=== PATIENT | female | born 1965 | race Caucasian/White ===

== ENCOUNTER 2016-08-30 21:05 | Emergency (ER) | payer MEDICAID, OTHER ==
[~2016-08-30] VITALS: Ht 160 cm; Wt 100.5 kg
[~2016-08-30 21:05] MED LIST: ATIVAN; FERR28TA2 PO; PRILOSEC; VALS160T43 PO
[2016-08-30 21:47] VITALS: BP 124/78
[2016-08-31] MEDS ORDERED: BACITRACIN-POLYMYXIN B TOPICAL OINT UD TOP ONE (01:14)
== END 2016-08-31 01:27 | disposition home or self-care (01) ==
LOC: ER 21:21
DX: S61.411A Laceration without foreign body of right hand, initial encounter (principal); Z88.0 Allergy status to penicillin; Z88.1 Allergy status to other antibiotic agents; W54.0XXA Bitten by dog, initial encounter; Y93.89 Activity, other specified; Y92.89 Other specified places as the place of occurrence of the external cause; Y99.8 Other external cause status
CPT/HCPCS: 12002

== ENCOUNTER 2022-09-03 14:34 | Inpatient (IN) | payer MEDICAID ==
[~2022-09-03] VITALS: Ht 160 cm; Wt 122.1 kg
[2022-09-03] MEDS ORDERED: AZITHROMYCIN 500MG/ 250ML 250 ML IV ONE (15:00)
[2022-09-03] MEDS ORDERED: methylPREDNISolone SOD SUCC 125 MG/2 ML VL IV ONE (15:00)
[2022-09-03 15:38] LABS: Basophils # (auto) 0 10 ^3/uL (0-0.2); Basophils % (auto) 0.8 % (0.0-2.0); Eosinophils # (auto) 0 10 ^3/uL (0-0.8); Eosinophils % (auto) 0.7 % (0.0-7.0); Hematocrit 47.3 % (36.0-46.0); Hemoglobin 15.4 g/dL (12.2-16.2); Lymphocytes # (auto) 1.2 10 ^3/uL (0.4-5.4); Lymphocytes % (auto) 19.1 % (10.0-50.0); Mean Corpuscular Hemoglobin 30.2 pg (28.0-32.0); Mean Corpuscular Hgb Conc. 32.5 g/dL (32.0-36.0); Mean Corpuscular Volume 92.9 fL (80.0-100.0); Monocytes # (auto) 0.7 10 ^3/uL (0-1.3); Monocytes % (auto) 10.7 % (0.0-12.0); Neutrophils # (auto) 4.2 10 ^3/uL (1.6-8.6); Neutrophils % (auto) 68.7 % (37.0-80.0); Nucleated Red Blood Cells % 0.1 %; Red Blood Cells 5.09 10^6/uL (4.0-5.20); Red Cell Distribution Width 13.5 % (11.8-14.3); White Blood Cell 6.1 10^3/uL (4.4-10.8)
[2022-09-03] MEDS ORDERED: REMDESIVIR PER PHARMACY 0 ML IV SCH (15:45)
[2022-09-03 16:15] LABS: Albumin 3.3 g/dL (3.4-5.0); Calcium 8.5 mg/dL (8.5-10.1)
[2022-09-03 16:17] LABS: Bilirubin, Total 0.4 mg/dL (0.2-1.0); Lactic Acid w/Reflex 2.4 mmol/L (0.4-2.0); Total Protein 7.5 g/dL (6.4-8.2)
[2022-09-03] MEDS ORDERED: IOHEXOL 350 MG/ML 100ML IJ ONE (16:40)
[2022-09-03] MEDS ORDERED: InsuLIN REG 1unit/0.01ml Soln (100units/ml) IV ONE (16:45)
[2022-09-03] MEDS ORDERED: DEXTROSE (50%) 50ML SYRG IV PRN ×2 (18:00→23:00)
[2022-09-03] MEDS ORDERED: REMDESIVIR 200 MG in NS 210ml LOADING DOSE ADULT IV ONE (18:00)
[2022-09-03] MEDS ORDERED: IPRATROPIUM BROM 0.5 MG/2.5ML INH SOL NEB SCH (18:00)
[2022-09-03] MEDS ORDERED: ALBUTEROL SULF 2.5 MG/0.5ML(0.5%) NEB SOLN NEB PRN (18:00)
[2022-09-03] MEDS ORDERED: ACETAMINOPHEN 325 MG TAB PO PRN (18:00)
[2022-09-03] MEDS ORDERED: MORPHINE SULFATE INJ 2 MG/ml SYRG IV PRN (18:00)
[2022-09-03] MEDS ORDERED: ALBUTEROL SULF 2.5 MG/0.5ML(0.5%) NEB SOLN NEB SCH (18:00)
[2022-09-03] MEDS ORDERED: NITROGLYCERIN 0.4 MG SL TAB SL PRN (18:00)
[2022-09-03 18:29] VITALS: BP 97/58
[2022-09-03] MEDS: SODIUM CHLORIDE 0.9% 1,000 ML IV SCH (18:43)
[2022-09-03 18:44] LABS: Cholesterol 145 mg/dL (< 200); Triglycerides 126 mg/dL (< 150)
[2022-09-03 18:47] LABS: HDL Cholesterol 33 mg/dL (40-59); LDL Cholesterol 100 mg/dL (< 100)
[2022-09-03] MEDS: ENOXAPARIN SOD 40 MG/0.4 ML SYRINGE SC SCH (20:10)
[2022-09-03] MEDS ORDERED: InsuLIN REG 1unit/0.01ml Soln (100units/ml) SC SCH (22:00)
[2022-09-03] MEDS ORDERED: ACCU-CHEK COMFORT CURVE STRIP VI SCH (22:00)
[2022-09-03] MEDS: ALBUTEROL SULF HFA 90MCG INH 200DOSE IN SCH (22:21)
[2022-09-03] MEDS: InsuLIN REG 1unit/0.01ml Soln (100units/ml) SC SCH (23:00)
[2022-09-04] MEDS: InsuLIN REG 1unit/0.01ml Soln (100units/ml) SC SCH ×5 (02:23→20:24)
[2022-09-04] MEDS: ACCU-CHEK COMFORT CURVE STRIP VI SCH ×6 (04:00→20:27)
[2022-09-04 05:38] LABS: Basophils # (auto) 0 10 ^3/uL (0-0.2); Basophils % (auto) 0.1 % (0.0-2.0); Eosinophils # (auto) 0 10 ^3/uL (0-0.8); Hematocrit 43.9 % (36.0-46.0); Hemoglobin 14.5 g/dL (12.2-16.2); Lymphocytes # (auto) 0.7 10 ^3/uL (0.4-5.4); Lymphocytes % (auto) 9.6 % (10.0-50.0); Mean Corpuscular Hemoglobin 30.7 pg (28.0-32.0); Mean Corpuscular Volume 93.2 fL (80.0-100.0); Monocytes # (auto) 0.1 10 ^3/uL (0-1.3); Monocytes % (auto) 1.8 % (0.0-12.0); Neutrophils # (auto) 6.1 10 ^3/uL (1.6-8.6); Neutrophils % (auto) 88.5 % (37.0-80.0); Nucleated Red Blood Cells % 0.1 %; Red Blood Cells 4.71 10^6/uL (4.0-5.20); Red Cell Distribution Width 13.7 % (11.8-14.3)
[2022-09-04 05:55] LABS: Potassium 4.2 mmol/L (3.5-5.1)
[2022-09-04] MEDS: ALBUTEROL SULF HFA 90MCG INH 200DOSE IN SCH ×3 (05:56→23:21)
[2022-09-04 05:59] LABS: BUN/Creatinine Ratio 17.7 (10.0-20.0); Bilirubin, Total 0.5 mg/dL (0.2-1.0); Total Protein 7.7 g/dL (6.4-8.2)
[2022-09-04] MEDS ORDERED: DEXTROSE (50%) 50ML SYRG IV PRN (06:30)
[2022-09-04] MEDS ORDERED: InsuLIN REG 1unit/0.01ml Soln (100units/ml) SC SCH ×3 (07:00→22:00)
[2022-09-04] MEDS ORDERED: ACCU-CHEK COMFORT CURVE STRIP VI SCH (07:00)
[2022-09-04] MEDS ORDERED: SIMV-13 PO (09:10)
[2022-09-04] MEDS ORDERED: LOSA-39 PO (09:10)
[2022-09-04] MEDS ORDERED: OMEP20TA PO (09:10)
[2022-09-04] MEDS: AZITHROMYCIN 500MG/ 250ML 250 ML IV SCH (09:43)
[2022-09-04] MEDS: ENOXAPARIN SOD 40 MG/0.4 ML SYRINGE SC SCH (09:44)
[2022-09-04] MEDS ORDERED: DexAMETHasone SOD PHOS 10MG/1ML VIAL INJ IV ONE (10:30)
[2022-09-04] MEDS: SODIUM CHLORIDE 0.9% 1,000 ML IV SCH (10:40)
[2022-09-04] MEDS ORDERED: cefTRIAXone 1GM/50ML D5W 50 ML IV ONE (11:30)
[2022-09-04] MEDS: INSULIN LANTUS (GLARGINE) 1 /0.01ml (100units/ml) SC SCH (11:55)
[2022-09-04 12:31] LABS: Urine Bacteria NONE SEEN /hpf (None Seen); Urine Blood Negative /uL (Negative); Urine Specific Gravity 1.034 (1.001-1.035); Urine WBC 2 /hpf (0 - 5)
[2022-09-04] MEDS ORDERED: CLINDAMYCIN 300MG IV 50 ML IV ONE (13:00)
[2022-09-04] MEDS: CLINDAMYCIN 900MG IV 50 ML IV SCH ×2 (14:21→22:17)
[2022-09-04] MEDS ORDERED: ACETAMINOPHEN 325 MG TAB PO PRN (16:30)
[2022-09-04] MEDS: REMDESIVIR 100mg 100 MG in SODIUM CHL 0.9% 230 ML IV SCH (18:35)
[2022-09-04] MEDS ORDERED: MORPHINE SULFATE INJ 2 MG/ml SYRG IV PRN (21:00)
[2022-09-04] MEDS ORDERED: NITROGLYCERIN 0.4 MG SL TAB SL PRN (21:00)
[2022-09-05] MEDS: ACCU-CHEK COMFORT CURVE STRIP VI SCH ×6 (00:15→20:34)
[2022-09-05] MEDS: InsuLIN REG 1unit/0.01ml Soln (100units/ml) SC SCH ×6 (00:16→20:33)
[2022-09-05 04:33] VITALS: BP 95/62
[2022-09-05] MEDS: CLINDAMYCIN 900MG IV 50 ML IV SCH ×3 (05:07→22:13)
[2022-09-05 05:30] LABS: Albumin 2.8 g/dL (3.4-5.0); Calcium 8.6 mg/dL (8.5-10.1); Potassium 3.7 mmol/L (3.5-5.1)
[2022-09-05 05:34] LABS: BUN/Creatinine Ratio 35.9 (10.0-20.0); Basophils # (auto) 0 10 ^3/uL (0-0.2); Basophils % (auto) 0.1 % (0.0-2.0); Bilirubin, Total 0.2 mg/dL (0.2-1.0); Eosinophils # (auto) 0 10 ^3/uL (0-0.8); Hematocrit 40.5 % (36.0-46.0); Hemoglobin 13.5 g/dL (12.2-16.2); Lymphocytes # (auto) 0.9 10 ^3/uL (0.4-5.4); Lymphocytes % (auto) 7.6 % (10.0-50.0); Mean Corpuscular Hemoglobin 30.2 pg (28.0-32.0); Mean Corpuscular Hgb Conc. 33.3 g/dL (32.0-36.0); Mean Corpuscular Volume 90.9 fL (80.0-100.0); Monocytes # (auto) 0.7 10 ^3/uL (0-1.3); Monocytes % (auto) 5.7 % (0.0-12.0); Neutrophils # (auto) 10.5 10 ^3/uL (1.6-8.6); Neutrophils % (auto) 86.6 % (37.0-80.0); Nucleated Red Blood Cells % 0.2 %; Red Blood Cells 4.45 10^6/uL (4.0-5.20); Red Cell Distribution Width 13.3 % (11.8-14.3); Total Protein 7.2 g/dL (6.4-8.2); White Blood Cell 12.1 10^3/uL (4.4-10.8)
[2022-09-05] MEDS: INSULIN LANTUS (GLARGINE) 1 /0.01ml (100units/ml) SC SCH ×2 (06:50→08:18)
[2022-09-05] MEDS: ALBUTEROL SULF HFA 90MCG INH 200DOSE IN SCH ×3 (06:55→21:44)
[2022-09-05 09:00] VITALS: BP_SYST 103; BP_SYST 110; BP_DIAS 58; BP_DIAS 64
[2022-09-05] MEDS ORDERED: cefTRIAXone 1GM/50ML D5W 50 ML IV SCH (09:00)
[2022-09-05] MEDS: AZITHROMYCIN 500MG/ 250ML 250 ML IV SCH (09:25)
[2022-09-05] MEDS: ENOXAPARIN SOD 40 MG/0.4 ML SYRINGE SC SCH (09:26)
[2022-09-05] MEDS: DexAMETHasone SOD PHOS 10MG/1ML VIAL INJ IV SCH (09:26)
[2022-09-05 13:00] VITALS: BP 121/75
[2022-09-05] MEDS: REMDESIVIR 100mg 100 MG in SODIUM CHL 0.9% 230 ML IV SCH (16:15)
[2022-09-05 20:00] VITALS: BP 115/66
[2022-09-05 22:00] VITALS: BP 115/66
[2022-09-06] MEDS: ACCU-CHEK COMFORT CURVE STRIP VI SCH ×7 (00:27→23:57)
[2022-09-06] MEDS: InsuLIN REG 1unit/0.01ml Soln (100units/ml) SC SCH ×7 (00:29→23:08)
[2022-09-06 05:00] VITALS: BP 131/66
[2022-09-06] MEDS: CLINDAMYCIN 900MG IV 50 ML IV SCH ×3 (05:31→21:20)
[2022-09-06 06:24] LABS: Basophils # (auto) 0 10 ^3/uL (0-0.2); Basophils % (auto) 0.1 % (0.0-2.0); Eosinophils # (auto) 0 10 ^3/uL (0-0.8); Hematocrit 37.2 % (36.0-46.0); Hemoglobin 12.5 g/dL (12.2-16.2); Lymphocytes # (auto) 1.4 10 ^3/uL (0.4-5.4); Lymphocytes % (auto) 13.6 % (10.0-50.0); Mean Corpuscular Hemoglobin 30.9 pg (28.0-32.0); Mean Corpuscular Hgb Conc. 33.7 g/dL (32.0-36.0); Mean Corpuscular Volume 91.7 fL (80.0-100.0); Monocytes % (auto) 9.6 % (0.0-12.0); Neutrophils # (auto) 7.9 10 ^3/uL (1.6-8.6); Neutrophils % (auto) 76.7 % (37.0-80.0); Nucleated Red Blood Cells % 0.1 %; Red Blood Cells 4.05 10^6/uL (4.0-5.20); Red Cell Distribution Width 13.6 % (11.8-14.3); White Blood Cell 10.3 10^3/uL (4.4-10.8)
[2022-09-06] MEDS: ALBUTEROL SULF HFA 90MCG INH 200DOSE IN SCH ×3 (06:42→22:00)
[2022-09-06 07:06] LABS: Albumin 2.7 g/dL (3.4-5.0); Calcium 8.3 mg/dL (8.5-10.1); Potassium 4.1 mmol/L (3.5-5.1)
[2022-09-06 07:10] LABS: BUN/Creatinine Ratio 48.9 (10.0-20.0); Bilirubin, Total 0.2 mg/dL (0.2-1.0)
[2022-09-06] MEDS ORDERED: INSULIN LANTUS (GLARGINE) 1 /0.01ml (100units/ml) SC ONE (08:21)
[2022-09-06] MEDS: DexAMETHasone SOD PHOS 10MG/1ML VIAL INJ IV SCH (08:40)
[2022-09-06] MEDS: ENOXAPARIN SOD 40 MG/0.4 ML SYRINGE SC SCH (08:40)
[2022-09-06] MEDS: AZITHROMYCIN 500MG/ 250ML 250 ML IV SCH (08:40)
[2022-09-06 09:00] VITALS: BP 105/64
[2022-09-06 13:00] VITALS: BP 108/70
[2022-09-06 17:00] VITALS: BP 103/53
[2022-09-06] MEDS: REMDESIVIR 100mg 100 MG in SODIUM CHL 0.9% 230 ML IV SCH (17:12)
[2022-09-06 22:00] VITALS: BP 120/60
[2022-09-07 01:34] VITALS: BP 120/60
[2022-09-07] MEDS: ACCU-CHEK COMFORT CURVE STRIP VI SCH ×5 (04:23→22:24)
[2022-09-07 05:00] VITALS: BP 103/62
[2022-09-07] MEDS: InsuLIN REG 1unit/0.01ml Soln (100units/ml) SC SCH ×5 (05:30→22:47)
[2022-09-07] MEDS: CLINDAMYCIN 900MG IV 50 ML IV SCH ×3 (05:55→22:28)
[2022-09-07] MEDS: INSULIN LANTUS (GLARGINE) 1 /0.01ml (100units/ml) SC SCH (06:23)
[2022-09-07 07:36] LABS: Basophils # (auto) 0 10 ^3/uL (0-0.2); Basophils % (auto) 0.1 % (0.0-2.0); Eosinophils # (auto) 0 10 ^3/uL (0-0.8); Eosinophils % (auto) 0.1 % (0.0-7.0); Hematocrit 39.6 % (36.0-46.0); Lymphocytes # (auto) 1.6 10 ^3/uL (0.4-5.4); Lymphocytes % (auto) 23.8 % (10.0-50.0); Mean Corpuscular Hemoglobin 30.1 pg (28.0-32.0); Mean Corpuscular Hgb Conc. 32.9 g/dL (32.0-36.0); Mean Corpuscular Volume 91.7 fL (80.0-100.0); Monocytes # (auto) 0.6 10 ^3/uL (0-1.3); Monocytes % (auto) 8.9 % (0.0-12.0); Neutrophils # (auto) 4.5 10 ^3/uL (1.6-8.6); Neutrophils % (auto) 67.1 % (37.0-80.0); Red Blood Cells 4.32 10^6/uL (4.0-5.20); Red Cell Distribution Width 13.6 % (11.8-14.3); White Blood Cell 6.7 10^3/uL (4.4-10.8)
[2022-09-07] MEDS: ALBUTEROL SULF HFA 90MCG INH 200DOSE IN SCH ×3 (07:40→19:00)
[2022-09-07 08:00] LABS: Albumin 2.6 g/dL (3.4-5.0); Calcium 8.1 mg/dL (8.5-10.1); Potassium 3.6 mmol/L (3.5-5.1)
[2022-09-07 08:05] LABS: BUN/Creatinine Ratio 42.3 (10.0-20.0); Bilirubin, Total 0.2 mg/dL (0.2-1.0); Total Protein 6.6 g/dL (6.4-8.2)
[2022-09-07] MEDS: AZITHROMYCIN 500MG/ 250ML 250 ML IV SCH (08:59)
[2022-09-07] MEDS: DexAMETHasone SOD PHOS 10MG/1ML VIAL INJ IV SCH (08:59)
[2022-09-07 09:00] VITALS: BP 114/60
[2022-09-07] MEDS: ENOXAPARIN SOD 40 MG/0.4 ML SYRINGE SC SCH (09:00)
[2022-09-07] MEDS ORDERED: PANTOPRAZOLE 40 MG TAB PO ONE (11:45)
[2022-09-07 13:00] VITALS: BP 115/75
[2022-09-07] MEDS: REMDESIVIR 100mg 100 MG in SODIUM CHL 0.9% 230 ML IV SCH (16:25)
[2022-09-07 17:00] VITALS: BP 107/62
[2022-09-07 22:47] VITALS: BP 121/69
[2022-09-08 04:41] VITALS: BP 115/69
[2022-09-08] MEDS: ACCU-CHEK COMFORT CURVE STRIP VI SCH ×4 (06:21→22:30)
[2022-09-08] MEDS: InsuLIN REG 1unit/0.01ml Soln (100units/ml) SC SCH ×4 (06:30→22:31)
[2022-09-08] MEDS: CLINDAMYCIN 900MG IV 50 ML IV SCH ×3 (06:31→23:24)
[2022-09-08] MEDS: INSULIN LANTUS (GLARGINE) 1 /0.01ml (100units/ml) SC SCH (06:33)
[2022-09-08] MEDS: ALBUTEROL SULF HFA 90MCG INH 200DOSE IN SCH ×3 (06:48→22:20)
[2022-09-08 09:00] VITALS: BP 113/59
[2022-09-08] MEDS: AZITHROMYCIN 500MG/ 250ML 250 ML IV SCH (11:15)
[2022-09-08] MEDS: PANTOPRAZOLE 40 MG TAB PO SCH (11:16)
[2022-09-08] MEDS: DexAMETHasone SOD PHOS 10MG/1ML VIAL INJ IV SCH (11:16)
[2022-09-08] MEDS: ENOXAPARIN SOD 40 MG/0.4 ML SYRINGE SC SCH (11:17)
[2022-09-08 13:00] VITALS: BP 117/72
[2022-09-08 17:00] VITALS: BP 98/59
[2022-09-08 20:00] VITALS: BP 103/58
[2022-09-08 21:43] VITALS: BP 103/58
[2022-09-09 04:40] VITALS: BP 132/78
[2022-09-09] MEDS: ACCU-CHEK COMFORT CURVE STRIP VI SCH ×3 (06:48→17:00)
[2022-09-09] MEDS: CLINDAMYCIN 900MG IV 50 ML IV SCH (06:52)
[2022-09-09] MEDS: INSULIN LANTUS (GLARGINE) 1 /0.01ml (100units/ml) SC SCH (06:57)
[2022-09-09] MEDS: InsuLIN REG 1unit/0.01ml Soln (100units/ml) SC SCH ×3 (06:58→17:00)
[2022-09-09] MEDS: ALBUTEROL SULF HFA 90MCG INH 200DOSE IN SCH ×2 (06:59→14:32)
[2022-09-09 08:33] VITALS: BP 118/56
[2022-09-09] MEDS: PANTOPRAZOLE 40 MG TAB PO SCH (09:39)
[2022-09-09] MEDS: ENOXAPARIN SOD 40 MG/0.4 ML SYRINGE SC SCH (09:43)
[2022-09-09] MEDS ORDERED: METF-370 PO (10:53)
[2022-09-09] MEDS ORDERED: BLOO1KIT60 XX (10:53)
[2022-09-09] MEDS ORDERED: DEXA6TAB PO (10:56)
[2022-09-09] MEDS ORDERED: AZITTAB PO (10:56)
[2022-09-09] MEDS ORDERED: ZINC220C10 PO (10:56)
[2022-09-09] MEDS ORDERED: ASCO500T11 PO (10:56)
[2022-09-09] MEDS ORDERED: CHOL1CAP47 PO (10:56)
[2022-09-09] MEDS: AZITHROMYCIN 500MG/ 250ML 250 ML IV SCH (11:47)
[2022-09-09] MEDS: DexAMETHasone SOD PHOS 10MG/1ML VIAL INJ IV SCH (11:48)
[2022-09-09 12:50] VITALS: BP 120/79
[2022-09-09 16:23] VITALS: BP 123/70
[2022-09-09 17:04] VITALS: BP 120/79
== END 2022-09-09 17:15 | disposition home or self-care (01) | DRG 137 ==
LOC: ER 14:34 → EDBD 14:34 → TELE 18:00 → TELE-EAST 09-04 21:46
PROVIDERS: ADMIT Nurse Practitioner Family; ATTEND Internal Medicine Geriatric Medicine
PROC: XW033E5 Introduction of Remdesivir Anti-infective into Peripheral Vein, Percutaneous Approach, New Technology Group 5 (ICD-10-PCS; principal; 2022-09-04)
DX: U07.1 COVID-19 (principal); J96.01 Acute respiratory failure with hypoxia; J12.82 Pneumonia due to coronavirus disease 2019; E44.0 Moderate protein-calorie malnutrition; E66.01 Morbid (severe) obesity due to excess calories; E11.65 Type 2 diabetes mellitus with hyperglycemia; E78.00 Pure hypercholesterolemia, unspecified; I10 Essential (primary) hypertension; R19.7 Diarrhea, unspecified; Z79.899 Other long term (current) drug therapy; Z90.710 Acquired absence of both cervix and uterus; Z80.9 Family history of malignant neoplasm, unspecified; Z83.3 Family history of diabetes mellitus; Z88.0 Allergy status to penicillin; Z88.1 Allergy status to other antibiotic agents; Z68.42 Body mass index [BMI] 45.0-49.9, adult; Z79.84 Long term (current) use of oral hypoglycemic drugs
CPT/HCPCS: 36415; 71045; 71275; 80053; 80061; 81001; 82962; 83036; 83605; 83735; 83880; 84443; 84484; 85025; 85379; 87040; 87426; 87804; 93005; 94640; 96361; 96365; 96366; G0378; J1100; J1815; J3490

== ENCOUNTER → 2022-09-13 | Outpatient (CLI) | payer MEDICAID ==
[~2022-09-13] MED LIST changes: +ASCO500T11 PO; +AZITTAB PO; +BLOO1KIT60 XX; +CHOL1CAP47 PO; +DEXA6TAB PO; +LOSA-39 PO; +METF-370 PO; +OMEP20TA PO; +SIMV-13 PO; +ZINC220C10 PO
== END | disposition home or self-care (01) ==
LOC: RT 09:32
PROVIDERS: ATTEND Internal Medicine
DX: J18.9 Pneumonia, unspecified organism (principal); U09.9 Post COVID-19 condition, unspecified
CPT/HCPCS: 36600; 82805

== ENCOUNTER → 2023-01-30 | Outpatient (CLI) | payer MEDICAID ==
[~2023-01-30] MED LIST changes: -FERR28TA2 PO; +FERR28TA4 PO; -LOSA-39 PO; +LOSA100T58 PO; -SIMV-13 PO; +SIMV40TA18 PO; -VALS160T43 PO; +VALS160T6 PO
== END | disposition home or self-care (01) ==
LOC: RT 10:25
PROVIDERS: ATTEND Internal Medicine Pulmonary Disease
DX: J44.9 Chronic obstructive pulmonary disease, unspecified (principal)
CPT/HCPCS: 94060

== ENCOUNTER 2024-05-22 16:47 | Inpatient (IN) | payer MEDICAID ==
[~2024-05-22] VITALS: Ht 160 cm; Wt 70.5 kg
[~2024-05-22 16:47] MED LIST changes: +LOSA-535 PO; -LOSA100T58 PO
[2024-05-22] MEDS: DexAMETHasone SOD PHOS 10MG/1ML VIAL INJ IV ONE (17:11)
[2024-05-22] MEDS: ACETAMINOPHEN 325 MG TAB PO ONE (17:11)
[2024-05-22 17:15] VITALS: PULSE 107; RESP 20; O2SAT 93
[2024-05-22] MEDS: IPRATROPIUM BROM 0.5 MG/2.5ML INH SOL NEB ONE (17:22)
[2024-05-22] MEDS: ALBUTEROL SULF 2.5 MG/0.5ML(0.5%) NEB SOLN NEB ONE (17:22)
--- NOTE | 2024-05-22 17:51 | ED.PDOC ---
History of Present Illness HPI Comments 58-year-old female brought in by EMS presents with a chief complaint of flu-like symptoms with associated fever, cough, and SOB. Patient reports that she has been feeling flu-like symptoms for the past few days. Patient was sating at 84% on room air and was placed on 3L/NC by EMS and is now sating at 93%. Patient was also febrile upon arrival at 102.7F. Patient denies taking any Tylenol or Ibuprofen for the fever. No other symptoms or modifying factors present at this time. Chief Complaint: Flu like Time Seen by MD: 17:48 Primary Care Provider: AMADAIES Reviewed Notes: Nurses Notes, Loan Funder Notes, Medications, Allergies Allergies: Coded Allergies: Penicillins (Verified Allergy, Unknown, 09/03/22) Tetracycline (Verified Allergy, Unknown, 09/03/22) Home Meds Active Scripts Zinc Sulfate (Zinc) 220 Mg Cap, 220 MG PO Q24H, #30 CAP Prov:JENNIFER CERVANTES MD 09/09/22 Cholecalciferol (Vitamin D3 Super Strength) 2,000 Unit Cap, 2000 UNIT PO Q24H, #30 CAP Prov:JENNIFER CERVANTES MD 09/09/22 Ascorbic Acid (VITAMIN C TABLET) 500 Mg Tb, 1 TAB PO BID, #60 TAB Prov:JENNIFER CERVANTES MD 09/09/22 Dexamethasone (Dexamethasone) 6 Mg Tab, 6 MG PO Q24H, #5 TAB Prov:JENNIFER CERVANTES MD 09/09/22 Azithromycin (Zithromax Z-Mark) 250 Mg Tab, 250 MG PO Q24H, #6 TAB Prov:JENNIFER CERVANTES MD 09/09/22 Blood Glucose Monitoring Suppl (D-Care Glucometer Kit/Glu W/Device) 1 Kit Kit, KIT XX, #1 Prov:JENNIFER CERVANTES MD 09/09/22 Metformin Hydrochloride (Metformin Hcl) 500 Mg Tab, 1 TAB PO BID, #60 TAB 3 Refills Prov:JENNIFER CERVANTES MD 09/09/22 Reported Medications Simvastatin (Simvastatin) 40 Mg Tab, 40 MG PO DAILY for 30 Days 09/04/22 Omeprazole (Gnp Omeprazole) 20 Mg Tab, 20 MG PO, TAB 09/04/22 Losartan Potassium (Losartan Potassium) 100 Mg Tab, 100 MG PO, TAB 09/04/22 [Prilosec] No Conflict Check 9/16/11 [Ativan] No Conflict Check 01/11/11 Ferrous Sulfate (Iron) 28 Mg Tab, PO DAILY 01/10/11 Valsartan-Hydrochlorothiazide (Diovan Hct) 160 Mg/25 Mg Tab, PO DAILY 01/10/11 Information Source: Patient, Emergency Med Personnel Mode of Arrival: EMS Severity: Moderate Timing: Days Duration: Since onset Prehospital treatment: Oxygen Past Medical History PAST MEDICAL HISTORY: High Lipids, HTN Surgical History: BTL, , Hysterectomy Family History Family History: Family hx of DM, Family hx of Cancer Social History Smoker: Non-Smoker, Quit Greater Than 1 Year Alcohol: Denies ETOH Use Drugs: Denies Drug Use Lives In: Home Constitutional: reports: fatigue, fever, weakness; denies: chills, diaphoresis, malaise, sweats, others EENTM: denies: blurred vision, double vision, ear bleeding, ear discharge, ear drainage, ear pain, ear ringing, eye pain, eye redness, hearing loss, mouth pain, mouth swelling, nasal discharge, nose bleeding, nose congestion, nose pain, photophobia, tearing, throat pain, throat swelling, voice changes, others Respiratory: reports: cough, shortness of breath; denies: hemoptysis, orthopnea, SOB at rest, SOB with excertion, stridor, wheezing, others Cardiovascular: denies: chest pain, dizzy spells, diaphoresis, Dyspnea on exertion, edema, irregular heart beat, left arm pain, lightheadedness, palpitations, PND, syncope, others Gastrointestinal: denies: abdomen distended, abdominal pain, blood streaked bowels, constipated, diarrhea, dysphagia, difficulty swallowing, hematemesis, melena, nausea, poor appetite, poor fluid intake, rectal bleeding, rectal pain, vomiting, others Genitourinary: denies: abnormal vagina bleeding, burning, dyspareunia, dysuria, flank pain, frequency, hematuria, incontinence, pain, , vagina discharge, urgency, others Neurological: denies: dizziness, fainting, headache, left sided numbness, left sided weakness, numbness, paresthesia, pre-existing deficit, right sided numbness, right sided weakness, seizure, speech problems, tingling, tremors, weakness, others Musculoskeletal: denies: back pain, gout, joint pain, joint swelling, muscle pain, muscle stiffness, neck pain, others Integumetry: denies: bruises, change in color, change in hair/nails, dryness, laceration, lesions, lumps, rash, wounds, others Allergic/Immunocompromised: denies: Difficulty Healing, Frequent Infections, Hives, Itching, others Hematologic/Lymphatic: denies: anemia, blood clots, easy bleeding, easy bruising, swollen glands, others Endocrine: denies: excessive hunger, excessive sweating, excessive thirst, excessive urination, flushing, intolerance to cold, intolerance to heat, unexplained weight gain, unexplained weight loss, others Psychiatric: denies: anxiety, bipolar disorder, depression, hopeless, panic disorder, schizophrenia, sleepless, suicidal, others All Other Systems: Reviewed and Negative Physical Exam Exam Comments Patient presents as a moderately ill 58-year-old female. General Appearance: Moderate Distress (Distress due to sickness and shortness of breath concerns.), Obese HEENT: Normal ENT Inspection, Pharynx Normal, TMs Normal Neck: Full Range of Motion, Non-Tender, Normal, Normal Inspection Respiratory: Chest Non-Tender, Lungs Clear, No Accessory Muscle Use, No Respiratory Distress, Normal Breath Sounds, Other (Unremarkable auscultation of bilateral lung ruano.) Cardiovascular: No Edema, No JVD, No Murmur, No Gallop, Normal Peripheral Pulses, Regular Rate/Rhythm Breast Exam: Deferred Gastrointestinal: No Organomegaly, Non Tender, No Pulsatile Mass, Normal Bowel Sounds, Soft Genitalia: Deferred Pelvic: Deferred Rectal: Deferred Extremities: No calf tenderness, Normal capillary refill, Normal inspection, Normal range of motion, Non-tender, No pedal edema Musculoskeletal : Apperance: Normal Neurologic: Alert, No Motor Deficits, Normal Affect, Normal Mood, No Sensory Deficits Cerebellar Function: Normal Reflexes: Normal Skin: Dry, Normal Color, Warm Lymphatic: No Adenopathy Was a procedure done? Was a procedure done?: No Differential Dx Considerations may include: Influenza a/B, COVID-19, viral upper respiratory illness, pneumonia, acute respiratory distress X-Ray, Labs, Meds, VS Vital Signs Date Time Temp Pulse Resp B/P (MAP) Pulse Ox O2 Delivery O2 Flow Rate FiO2 05/22/24 21:24 100.3 05/22/24 20:00 106 05/22/24 19:40 99.2 106 12 117/91 (100) 93 99.2 05/22/24 19:40 106 12 93 Nasal Cannula* 2 28 05/22/24 18:23 99.5 100 20 124/72 (89) 90 99.5 05/22/24 17:22 22 92 Nasal Cannula* 3 32 05/22/24 17:15 107 20 93 Nasal Cannula* 2 28 05/22/24 17:13 102.7 107 20 106/71 (83) 93 102.7 05/22/24 16:50 Nasal Cannula* 3 32 05/22/24 16:50 102.7 107 21 106/71 (83) 88 Lab Test 05/22/24 21:05 05/22/24 20:34 05/22/24 19:08 05/22/24 17:34 Range/Units Troponin I High Sensitivity 3 L < 3 L < 3 L </=34 ng/L Influenza Type A Antigen Positive Negative Influenza Type B Antigen Negative Negative SARS-CoV-2 Antigen (Rapid) Negative NEGATIVE White Blood Count 5.5 4.4-10.8 10^3/uL Red Blood Count 4.88 4.0-5.20 10^6/uL Hemoglobin 15.0 12.2-16.2 g/dL Hematocrit 45.3 36.0-46.0 % Mean Corpuscular Volume 92.8 80.0-100.0 fL Mean Corpuscular Hemoglobin 30.7 28.0-32.0 pg Mean Corpuscular Hemoglobin Concent 33.0 32.0-36.0 g/dL Red Cell Distribution Width 14.5 H 11.8-14.3 % Platelet Count 188 140-450 10^3/uL Mean Platelet Volume 8.9 6.9-10.8 fL Neutrophils (%) (Auto) 37.0-80.0 % Lymphocytes (%) (Auto) 10.0-50.0 % Monocytes (%) (Auto) 0.0-12.0 % Basophils (%) (Auto) 0.0-2.0 % Neutrophils # (Auto) 1.6-8.6 10 ^3/uL Lymphocytes # (Auto) 0.4-5.4 10 ^3/uL Monocytes # (Auto) 0-1.3 10 ^3/uL Differential Total Cells Counted 100.0 100 Neutrophils % (Manual) 66 37.0-80.0 Band Neutrophils % (Manual) 0 Lymphocytes % (Manual) 25 10.0-50.0 Monocytes % (Manual) 9 0-12 Eosinophils % (Manual) 0 0-7 Basophils % (Manual) 0 0.0-2.0 Metamyelocytes % (manual) 0 Myelocytes % (Manual) 0 Promyelocytes % (Manual) 0 Blast Cells % (Manual) 0 Nucleated Red Blood Cells 1.0 % Reactive Lymphocytes 0 Smudge Cells 1 /100 WBC Platelet Estimate Adequate D-Dimer, Quantitative 0.34 0.0-0.49 mg/L FEU Sodium Level 139 136-145 mmol/L Potassium Level 3.8 3.5-5.1 mmol/L Chloride Level 101 98-107 mmol/L Carbon Dioxide Level 26 20-31 mmol/L Anion Gap 12 5-15 Blood Urea Nitrogen 13 9-23 mg/dL Creatinine 0.91 0.550-1.02 mg/dL Glomerular Filtration Rate Calc 72 >90 mL/min BUN/Creatinine Ratio 14.3 10.0-20.0 Serum Glucose 119 H 74-106 mg/dL Calcium Level 9.7 8.7-10.4 mg/dL B-Type Natriuretic Peptide 29.86 0-100 pg/mL Lipase 25 12-53 U/L Current Medications Medications (Trade) Dose Ordered Sig/Taras Route Start Time Stop Time Status Last Admin Acetaminophen (Tylenol Tablet) 1,000 mg ONCE ONCE PO 05/22/24 17:00 05/22/24 17:01 DC 05/22/24 17:11 Albuterol (Ventolin Medneb) 5 mg ONCE ONCE NEB 05/22/24 17:00 05/22/24 17:01 DC 05/22/24 17:22 Ipratropium [place] (Atrovent Medneb) 0.5 mg ONCE ONCE NEB 05/22/24 17:00 05/22/24 17:01 DC 05/22/24 17:22 Ibuprofen (Motrin Tablet) 600 mg ONCE ONCE PO 05/22/24 21:30 05/22/24 21:31 DC 05/22/24 21:24 X-Ray, Labs, Meds, VS Comment All studies performed the ED were evaluated by me personally. Chest x-ray was unremarkable for any consolidation or other radiographic abnormality. Serum laboratories were unremarkable for any systemic process, but the patient is positive for influenza A. Patient maintained a 4 L oxygen necessity while in the ED. We attempted multiple times to remove the oxygen, but the patient would desaturate into the mid 80s. Patient will be admitted for acute respiratory distress and influenza a concerns. Time of 1ST Reevaluation: 22:05 Reevaluation 1ST: Improved Consultation: PCP Patient Education/Counseling: Diagnosis, Treatment, Prognosis Family Education/Counseling: Diagnosis, Treatment, Prognosis Departure 1 Departure Time of Disposition: 22:06 Impression: Primary Impression: Acute respiratory distress Additional Impression: Influenza A Disposition: ADMITTED INPATIENT Condition: Fair Discharged With: Self Critical Care Note Critical Care Time?: No Stability Stability form required: No Heart Score Heart Score: Heart Score Response (Comments) Value History N/A 0 EKG N/A 0 Age N/A 0 Risk Factors N/A 0 Troponin N/A 0 Total 0 I personally scribed for HANS MCKEON PAC ([email or web address]) on 05/22/24 at 17:51. Electronically submitted by Henrry Salgado ([email or web address]). HANS MCKEON PAC May 22, 2024 17:51
[2024-05-22 17:52] LABS: Hematocrit 45.3 % (36.0-46.0); Mean Corpuscular Hemoglobin 30.7 pg (28.0-32.0); Mean Corpuscular Volume 92.8 fL (80.0-100.0); Platelet Count (auto) 188 10^3/uL (140-450); Red Blood Cells 4.88 10^6/uL (4.0-5.20); Red Cell Distribution Width 14.5 % (11.8-14.3); White Blood Cell 5.5 10^3/uL (4.4-10.8)
[2024-05-22 18:04] LABS: Chloride 101 mmol/L (98-107); Potassium 3.8 mmol/L (3.5-5.1); Sodium 139 mmol/L (136-145)
[2024-05-22 18:05] LABS: Anion Gap 12 (5-15); Calcium 9.7 mg/dL (8.7-10.4); Carbon Dioxide 26 mmol/L (20-31)
[2024-05-22 18:10] LABS: BUN/Creatinine Ratio 14.3 (10.0-20.0); Blood Urea Nitrogen 13 mg/dL (9-23)
[2024-05-22 18:26] LABS: Glucose 119 mg/dL (74-106)
[2024-05-22 18:34] LABS: Band Neutrophils % (manual) 0; Basophils % (manual) 0 (0.0-2.0); Blast Cells 0; Eosinophils % (manual) 0 (0-7); Metamyelocytes % 0; Myelocytes % 0; Promyelocytes % 0; Reactive Lymphocytes 0
[2024-05-22 18:35] LABS: Lipase 25 U/L (12-53)
--- NOTE | 2024-05-22 18:50 | DVH ---
CLINICAL INFORMATION: 58 years old, Female; Shortness of breath. TECHNIQUE: Single AP portable chest radiograph was obtained. COMPARISON: XY CHEST PORTABLE on DOS: 09/03/22 FINDINGS: Lungs: Mild atelectasis in the lung bases. No focal consolidation. No pneumothorax or pleural effusio n. Cardiac: Heart size is within normal limits. Pulmonary vasculature: Unremarkable. Mediastinum/saviat: Unremarkable. Bones: No acute osseous abnormality identified. Other: No other significant findings. IMPRESSION: Mild bibasilar atelectasis. No focal consolidation or other acute radiographic abnormality identified in the chest.
[2024-05-22 19:08] LABS: Lymphocytes % (manual) 25 (10.0-50.0); Monocytes % (manual) 9 (0-12); Platelet Estimate Adequate; Smudge Cells 1 /100 WBC
[2024-05-22 19:40] VITALS: PULSE 106; RESP 12; O2SAT 93
[2024-05-22] MEDS: IBUPROFEN 600 MG TAB PO ONE (21:24)
[2024-05-22 21:38] LABS: COVID19 ANTIGEN SOFIA FIA NEGATIVE (NEGATIVE); Rapid Influenza B Negative (Negative)
[2024-05-22 21:40] LABS: Rapid Influenza A Positive (Negative)
[2024-05-22] MEDS ORDERED: HYDROcodone-ACET 5/325MG TAB PO PRN (22:30)
[2024-05-22] MEDS ORDERED: DEXTROSE (50%) 50ML SYRG IV PRN (22:30)
[2024-05-22] MEDS ORDERED: DOCUSATE SOD 100 MG CAP PO PRN (22:30)
[2024-05-22] MEDS ORDERED: hydrALAZINE HCL 20 MG/ML VL IV PRN (22:30)
[2024-05-22] MEDS ORDERED: ONDANSETRON HCL 4 MG/2 ML VIAL IV PRN (22:30)
[2024-05-22] MEDS ORDERED: NITROGLYCERIN 0.4 MG SL TAB SL PRN (22:30)
[2024-05-22] MEDS ORDERED: MORPHINE SULFATE INJ 2 MG/ml SYRG IV PRN (22:30)
[2024-05-22] MEDS ORDERED: ACETAMINOPHEN 325 MG TAB PO PRN (22:30)
[2024-05-22] MEDS ORDERED: cefTRIAXone 1GM/50ML D5W 50 ML IV ONE (22:30)
--- NOTE | 2024-05-22 22:35 | DVHHP2 ---
History of Present Illness Reason for Visit: Acute respiratory distress History of Present Illness The patient is a 58-year-old female with past medical history of hypertension and hyperlipidemia who presented to [facility] ED with complaint of shortness of breaths. Patient reports symptoms progressively get worse with cough, fever, chills, hypoxia with O2 saturation at 84% on room air, getting worse that prompted this visit. Patient was seen and evaluated in the ED and was placed on oxygen 2 liter/minutes via nasal cannula, O2 saturation improved to 94%, blood pressure 106/71, heart rate 106, temperature 102.7 F trending down to 99.2 F, WBC 5.5, platelets 188, sodium 139, potassium 3.8, BUN 13, creatinine 0.91, GFR 72, glucose 119, troponin 3, BNP 29.86, serology reports positive for influenza A. Please see medication orders section in the computer. On my assessment, patient denied chest pain, no headache, no dizziness, no diaphoresis, currently on oxygen, no nausea, no vomiting, no fever, no chills. Patient was admitted for further evaluation and medical management. Past Medical History High Lipids, HTN Past Surgical History BTL, , Hysterectomy Family History Reviewed, noncontributory to the management of this case. Past Social History The patient lives at home, quit smoking greater than 1 year, denies alcohol or illicit drugs abuse. Review of Systems Constitutional: Yes: Fever, Chills, Weakness, Other (Fatigue); No: Sweats, Malaise Eyes: No: Pain, Vision change, Conjunctivae inflammation, Eyelid inflammation, Other, Redness ENT: No: Ear pain, Ear discharge, Nose pain, Nose discharge, Nose congestion, Mouth pain, Mouth swelling, Throat pain, Throat swelling, Other Respiratory: Cough, Shortness of breath, Other (SOB at rest); No: Dry, SOB with excertion, Wheezing, Hemoptysis, Pleuritic Pain, Sputum, Wheezing Cardiovascular: No: Chest Pain, Palpitations, Orthopnea, Paroxysmal Noc. Dyspnea, Edema, Lt Headedness, Other Gastrointestinal: No: Nausea, Vomiting, Abdominal Pain, Diarrhea, Constipation, Melena, Hematochezia, Other Genitourinary: No Dysuria, No Frequency, No Incontinence, No Hematuria, No Retention, No Other Musculoskeletal: No: other, neck pain, shoulder pain, arm pain, back pain, hand pain, leg pain, foot pain Skin: No: Rash, Lesions, Jaundice, Bruising, Other Neurological: No: Weakness, Numbness, Incoordination, Change in speech, Confusion, Seizures, Other Allergies: Coded Allergies: Penicillins (Verified Allergy, Unknown, 09/03/22) Tetracycline (Verified Allergy, Unknown, 09/03/22) Exam Vital Signs Vital Signs Date Time Temp Pulse Resp B/P (MAP) Pulse Ox O2 Delivery O2 Flow Rate FiO2 05/22/24 22:19 100.0 05/22/24 21:00 92 12 91/41 (58) 05/22/24 19:40 93 05/22/24 19:40 Nasal Cannula* 2 28 General Appearance: Alert, Oriented X3, Cooperative, No acute distress HEENT: Atraumatic, PERRLA, EOMI, Mucous membr. moist/pink Respiratory: Normal air movement, Other (Diminished breath sound) Cardiovascular: Regular rate, Normal S1, Normal S2, No murmurs Abdominal: Normal bowel sounds, Soft, No tenderness, No hepatospenomegaly, No masses Extremities: No clubbing, No cyanosis, No edema, Normal pulses, No tenderness/swelling Skin: No rashes, No breakdown, No significant lesion Neuro: Normal speech, Normal tone, Sensation intact, Cranial nerves 3-12 NL, Reflexes 2+, Other (Generalized weakness) Psych/Mental Status: Mental status NL, Mood NL Labs/Xrays Labs Test 05/22/24 21:05 05/22/24 20:34 05/22/24 17:34 Range/Units Troponin I High Sensitivity 3 L </=34 ng/L Influenza Type A Antigen Positive Negative Influenza Type B Antigen Negative Negative SARS-CoV-2 Antigen (Rapid) Negative NEGATIVE White Blood Count 5.5 4.4-10.8 10^3/uL Red Blood Count 4.88 4.0-5.20 10^6/uL Hemoglobin 15.0 12.2-16.2 g/dL Hematocrit 45.3 36.0-46.0 % Mean Corpuscular Volume 92.8 80.0-100.0 fL Mean Corpuscular Hemoglobin 30.7 28.0-32.0 pg Mean Corpuscular Hemoglobin Concent 33.0 32.0-36.0 g/dL Red Cell Distribution Width 14.5 H 11.8-14.3 % Platelet Count 188 140-450 10^3/uL Mean Platelet Volume 8.9 6.9-10.8 fL Neutrophils (%) (Auto) 37.0-80.0 % Lymphocytes (%) (Auto) 10.0-50.0 % Monocytes (%) (Auto) 0.0-12.0 % Basophils (%) (Auto) 0.0-2.0 % Neutrophils # (Auto) 1.6-8.6 10 ^3/uL Lymphocytes # (Auto) 0.4-5.4 10 ^3/uL Monocytes # (Auto) 0-1.3 10 ^3/uL Differential Total Cells Counted 100.0 100 Neutrophils % (Manual) 66 37.0-80.0 Band Neutrophils % (Manual) 0 Lymphocytes % (Manual) 25 10.0-50.0 Monocytes % (Manual) 9 0-12 Eosinophils % (Manual) 0 0-7 Basophils % (Manual) 0 0.0-2.0 Metamyelocytes % (manual) 0 Myelocytes % (Manual) 0 Promyelocytes % (Manual) 0 Blast Cells % (Manual) 0 Nucleated Red Blood Cells 1.0 % Reactive Lymphocytes 0 Smudge Cells 1 /100 WBC Platelet Estimate Adequate D-Dimer, Quantitative 0.34 0.0-0.49 mg/L FEU Sodium Level 139 136-145 mmol/L Potassium Level 3.8 3.5-5.1 mmol/L Chloride Level 101 98-107 mmol/L Carbon Dioxide Level 26 20-31 mmol/L Anion Gap 12 5-15 Blood Urea Nitrogen 13 9-23 mg/dL Creatinine 0.91 0.550-1.02 mg/dL Glomerular Filtration Rate Calc 72 >90 mL/min BUN/Creatinine Ratio 14.3 10.0-20.0 Serum Glucose 119 H 74-106 mg/dL Calcium Level 9.7 8.7-10.4 mg/dL B-Type Natriuretic Peptide 29.86 0-100 pg/mL Lipase 25 12-53 U/L PATIENT: JEFF FRIEND ACCT: [id number] UNIT: [id number] : 1965 LOC: ER ROOM / BED: / AGE / SEX: 58 / F ADM STATUS: REG ER SERVICE [id number] ORDERING PHYSICIAN: HANS MCKEON PAC PROCEDURE(s): CXRP - CHEST PORTABLE REASON: Shortness of breath ORDER NUMBER(s): [id number], ACCESSION NUMBER(s): [id number] CLINICAL INFORMATION: 58 years old, Female; Shortness of breath. TECHNIQUE: Single AP portable chest radiograph was obtained. COMPARISON: XY CHEST PORTABLE on DOS: 09/03/22 FINDINGS: Lungs: Mild atelectasis in the lung bases. No focal consolidation. No pneumothorax or pleural effusion. Cardiac: Heart size is within normal limits. Pulmonary vasculature: Unremarkable. Mediastinum/savita: Unremarkable. Bones: No acute osseous abnormality identified. Other: No other significant findings. IMPRESSION: Mild bibasilar atelectasis. No focal consolidation or other acute radiographic abnormality identified in the chest. Assessment/Plan Assessment/Plan Acute respiratory distress Influenza A Fever, unspecified Generalized weakness Plan 1. Admit to telemetry unit 2. Breathing treatment 3. Pain control management 4. IV antibiotic management 5. Management of fluids and electrolytes 6. Consultation for hospitalist 7. Diagnostic test chest x-ray 8. DVT prophylaxis-on aspirin 9. Repeat labs CBC, CMP in a.m. 10. Home medication reviewed and reconciled 11. Continue with current medical management 12. Treatment plan discussed with patient and RN. Patient verbalized understanding. Plan discussed with: Patient, Other (RN) My Orders Orders - ROBIN VAZQUEZ DNP Procedure Category Date Status Time Albuterol Medneb PHA 05/22/24 Transmitted (Ventolin Medneb) 22:30 Ipratropium Medneb PHA 05/22/24 Transmitted (Atrovent Medneb) 22:30 Ceftriaxone Ivpb PHA 05/23/24 Transmitted Rocephin 09:00 Ceftriaxone Ivpb PHA 05/22/24 Transmitted Rocephin 22:30 Oseltamivir 75mg PHA 05/23/24 Transmitted Capsule (Tamiflu 75mg 10:00 Consistent DIET 05/23/24 Transmitted Carb(Ccho)Diabetes Breakfast Atorvastatin (Lipitor) PHA 05/23/24 Transmitted 22:00 Aspirin Tablet PHA 05/23/24 Transmitted 10:00 Dexamethasone PHA 05/23/24 Transmitted Injection (Decadron 10:00 Famotidine Injection PHA 05/23/24 Transmitted (Pepcid Injection) 10:00 Hydralazine Injection PHA 05/22/24 Transmitted (Apresoline Inject 22:30 Glucose Blood PHA 05/23/24 Transmitted (Accu-Chek Comfort 07:00 Mild Sliding Scale PHA 05/23/24 Transmitted 07:00 Dextrose 50% Syringe PHA 05/22/24 Transmitted 22:30 Admit ADMIT 05/22/24 Transmitted 22:23 Allergies LAINA 05/22/24 In Process 22:23 Code Status CODE 05/22/24 Transmitted 22:23 0.9% Ns 1000 Ml PHA 05/22/24 Transmitted 22:30 Oxygen Per Hour RT 05/22/24 Transmitted 22:23 Hydrocodone-Acet PHA 05/22/24 Transmitted 5/325mg Tab ([place] 22:30 Ondansetron Hcl PHA 05/22/24 Transmitted (Zofran) 22:30 Docusate Sodium PHA 05/22/24 Transmitted Capsule (Colace 22:30 Complete Blood Count LAB 05/23/24 Verified 04:00 Comprehensive LAB 05/23/24 Verified Metabolic Panel 04:00 Condition: Serious [facility]INA 05/22/24 In Process 22:23 Acetaminophen Tablet [facility] 05/22/24 Transmitted (Tylenol Tablet) 22:30 Bedrest With Bathroom [facility]INA 05/22/24 In Process Privileg 22:23 Sequential [facility] 05/22/24 In Process Compression Device Nitroglycerin [facility] 05/22/24 Transmitted Sublingual (Ntrostat 22:30 Morphine Sulfate PHA 05/22/24 Transmitted Injection 22:30 Notify Of Changes [facility] 05/22/24 In Process From Base 22:[address] [facility] 05/22/24 In Process 24 Hours 22:[address] [facility] 05/22/24 In Process Protocol 22:[address] [facility] 05/22/24 In Process Every Shift 22:23 Oxygen By Nasal RT 05/22/24 Transmitted Cannula 22:23 Problem List: (1) Acute respiratory distress (2) Influenza A (3) Fever, unspecified (4) Generalized weakness Date of Service: May 22, 2024 Billing Provider: ROBIN VAZQUEZ DNP Common Visit Codes: [id number] INP/OBS CARE (HIGH) ROBIN VAZQUEZ DNP May 22, 2024 22:35
[2024-05-22] MEDS: SODIUM CHLORIDE 0.9% 1,000 ML IV SCH (23:07)
[2024-05-22] MEDS: MELATONIN 5 MG TAB PO ONE (23:46)
[2024-05-22 23:59] VITALS: BP 117/91; PULSE 118; RESP 20; TEMP 100.3; O2SAT 93
[2024-05-23] MEDS: InsuLIN REG 1unit/0.01ml Soln (100units/ml) SC SCH ×2 (06:34→11:30)
[2024-05-23] MEDS: ACCU-CHEK COMFORT CURVE STRIP VI SCH ×2 (06:34→11:30)
[2024-05-23 07:30] VITALS: PULSE 81; RESP 18; O2SAT 95; O2SAT 96
[2024-05-23] MEDS ORDERED: cefTRIAXone 1GM/50ML D5W 50 ML IV SCH (09:00)
[2024-05-23] MEDS ORDERED: OSELTAMIVIR 75 MG CAP PO SCH (10:00)
[2024-05-23] MEDS: ASPirin 81 mg TAB PO SCH (10:16)
[2024-05-23] MEDS: AZITHROMYCIN 500MG/ 250ML 250 ML IV SCH (10:17)
[2024-05-23] MEDS: FAMOTIDINE (10MG/ML) 2ML VL IV SCH (10:17)
[2024-05-23] MEDS: DexAMETHasone SOD PHOS 10MG/1ML VIAL INJ IV SCH (10:17)
[2024-05-23] MEDS: OSELTAMIVIR 75 MG CAP PO SCH (10:18)
--- NOTE | 2024-05-23 11:09 | DVHPNRES ---
Progress Note Date Seen: May 23, 2024 Resident Creating Document: [place] RESIDENT Has the PT tested + for MRSA If YES, has PT been informed?: No Medical Necessity Reason Pt with a Central, PICC or Fol: No Subjective Review of Systems This is a 58-year-old female with past medical history of hypertension, type 2 diabetes, hypothyroidism, hyperlipidemia who presented to the ED with chief complaint of shortness of breaths. The patient stated that she started feeling fever/chills, shortness of breath that started progressively getting worse in the past couple of days associated with cough. The patient also reported that one of her nephews was apparently sick nose. On admission, patient was saturating 88% and was placed on 3 L of oxygen through nasal cannula. Initial chest x-ray was performed showing no evidence of clear consolidations at that time. Initial CBC and BNP were grossly unremarkable. Troponins came back negative, BNP was normal range. The patient tested positive for influenza A. The patient was started on treatment for possible viral pneumonia and was admitted for further assessment and management. Patient seen and examined at bedside. The patient is alert and oriented in person, place and time. The patient is currently on 2 L of oxygen through nasal cannula saturating 98%. The patient is currently on oseltamivir 75 mg q.12. We will add azithromycin IV for possible viral pneumonia. There is also respiratory therapy with albuterol and ipratropium p.r.n. the patient states that feels fatigued and minimally weak. We will continue current plan of care. ROS Constitutional: Reports minimally weakness and fatigue. Denies weight loss, fever and chills. HEENT: Denies changes in vision and hearing. Respiratory: Reports mild shortness of breath and cough. Cardiovascular: Denies chest discomfort or palpitations GI: Denies abdominal pain, nausea, vomiting and diarrhea. : Denies dysuria and urinary frequency. Musculoskeletal: Denies myalgias and joint pain Skin: Denies rash and pruritus. Neurological: Denies dizziness, headache, vision or hearing problems Objective vital signs Vital Sign Date Time Temp Pulse Resp B/P (MAP) Pulse Ox O2 Delivery O2 Flow Rate FiO2 05/23/24 09:11 109 05/23/24 08:00 16 100/88 (92) 94 05/23/24 07:30 Nasal Cannula 2.0 05/23/24 07:30 98.7 98.7 1/26/25 07:30 28 medications Current Medications Medications Dose Ordered Sig/Taras Route Start Time Stop Time Status Last Admin Dose Admin Albuterol 2.5 mg Q4HPRN PRN NEB 05/22/24 22:30 Ipratropium [place] 0.5 mg Q4HPRN PRN NEB 05/22/24 22:30 Oseltamivir Phosphate 75 mg Q12HR PO 05/23/24 10:00 05/28/24 09:59 05/23/24 10:18 75 MG Atorvastatin Calcium 40 mg HS PO 05/23/24 22:00 Aspirin 81 mg DAILY PO 05/23/24 10:00 05/23/24 10:16 81 MG Dexamethasone Sodium Phosphate 6 mg DAILY IV 05/23/24 10:00 05/23/24 10:17 6 MG Famotidine 20 mg DAILY IV 05/23/24 10:00 05/23/24 10:17 20 MG Hydralazine HCl 10 mg Q6HP PRN IV 05/22/24 22:30 Diagnostic Test (Pha) 1 strip ACHS 05/23/24 07:00 05/23/24 06:34 1 STRIP Insulin Human Regular ACHS SC 05/23/24 07:00 Dextrose 50 ml UD PRN IV 05/22/24 22:30 Sodium Chloride 1,000 ml @ 60 mls/hr [id number] IV 05/22/24 22:30 05/22/24 23:07 60 MLS/HR Acetaminophen/ Hydrocodone Bitart 1 tab Q4HP PRN PO 05/22/24 22:30 Ondansetron HCl 4 mg Q4HP PRN IV 05/22/24 22:30 Docusate Sodium 100 mg BIDPRN PRN PO 05/22/24 22:30 Acetaminophen 650 mg Q6HP PRN PO 05/22/24 22:30 Nitroglycerin 0.4 mg Q5MINP PRN SL 05/22/24 22:30 Morphine Sulfate 2 mg Q30M PRN IV 05/22/24 22:30 Azithromycin 250 ml @ 125 mls/hr DAILY IV 05/23/24 10:00 05/23/24 10:17 125 MLS/HR Examination Physical Examination General: Patient alert and oriented in person, place and time. Patient is minimally fatigued and weak. Patient following commands. HEENT: Normocephalic, atraumatic, moist mucous membranes Respiratory/pulmonary: Clear lungs bilaterally, no associated crackles or wheezes. Currently on 2L/min of O2 through Nasal cannula. Cardiovascular: Normal heart sounds S1 and S2 with no associated murmurs Abdomen: Abdomen nondistended, there is no pain to palpation in any of the abdominal quadrants, no palpable masses. Extremities: There is no peripheral edema present at the lower extremities. Peripheral Pulses: 3+ Radial (R). 3+ Radial (L). 3+ Dorsalis pedis (R). 3+ Dorsalis pedis(L) Skin: No rashes or pruritus, there is no sacral edema present at this time. Neurological: Intact cranial nerves with no focal neurologic deficits laboratory and microbiology Laboratory Tests 05/22/24 17:34 Test 05/22/24 17:34 Range/Units Serum Glucose 119 H 74-106 mg/dL Labs and/or images reviewed: Labs reviewed by me, Image(s) reviewed by me Problem List/Assessment/Plan Problem List/Assessment/Plan Assessment/plan Acute hypoxic respiratory failure likely due to influenza A Viral pneumonia -initial chest x-ray was grossly clear with no evidence of clear consolidations -patient tested positive for influenza A -started on oseltamivir 75 mg b.i.d. -start azithromycin IV -continue dexamethasone 6 mg IV daily -respiratory therapy with albuterol and ipratropium p.r.n. -symptomatic management with acetaminophen Primary hypertension -blood pressure running in the lower side at this time -we will resume home losartan 100 mg daily tomorrow a.m. once blood pressure on normal range. -monitor blood pressure closely Hypothyroidism -order TSH and free T4 -resume home levothyroxine 25 mcg q.a.m. Dyslipidemia -order lipid panel -start atorvastatin 40 mg daily Type 2 diabetes mellitus -Ordered hemoglobin A1c -start sliding scale insulin -monitor blood glucose Morbid obesity -BMI 44.4 -consult on diet, lifestyle modifications and exercise as tolerated. Goals of care discussed with the patient at bedside for 20min, FULL CODE Plan discussed with Dr. Babcock Plan discussed with: Patient, Other (RN) My Orders My Orders Orders - GOLDIE MO Procedure Category Date Status Time Azithromycin 500mg/ PHA 05/23/24 In Process 250ml (Zithromax 50 10:00 Addendum Addendum Addendum I was physically present for the [place] portions of the service provided to patient by THE RESIDENT. I have reviewed the documentation, discussed the case with resident and agree with the resident's documentation except as noted. Also the patient's clinical case was discussed with the patient's nurse. This medical document was created using an electronic medical record system with computerized dictation system. Although this document has been carefully reviewed, there might still be some phonetic and typographical errors. These areas are purely typographical due to imperfections of the software programs, and do not reflect any compromise in the patient's medical care. Late signature. Date of Service: May 23, 2024 Billing Provider: RELL BABCOCK MD Common Visit Codes: 58014-[id number] INP/OBS CARE(HIGH) Secondary Visit Codes: 60062-WDCWKMGS CARE PLAN 30 MINUTES (20 minutes) GOLDIE MO May 23, 2024 11:09 RELL BABCOCK MD May 24, 2024 06:41
[2024-05-23] MEDS ORDERED: DEXTROSE (50%) 50ML SYRG IV PRN (11:15)
[2024-05-23 13:51] LABS: Basophils # (auto) 0 10 ^3/uL (0-0.2); Basophils % (auto) 0.4 % (0.0-2.0); Eosinophils # (auto) 0 10 ^3/uL (0-0.8); Hematocrit 41.1 % (36.0-46.0); Hemoglobin 13.4 g/dL (12.2-16.2); Lymphocytes # (auto) 0.5 10 ^3/uL (0.4-5.4); Lymphocytes % (auto) 12.2 % (10.0-50.0); Mean Corpuscular Hemoglobin 30.5 pg (28.0-32.0); Mean Corpuscular Hgb Conc. 32.6 g/dL (32.0-36.0); Mean Corpuscular Volume 93.6 fL (80.0-100.0); Monocytes # (auto) 0.4 10 ^3/uL (0-1.3); Monocytes % (auto) 9.3 % (0.0-12.0); Neutrophils # (auto) 3.3 10 ^3/uL (1.6-8.6); Neutrophils % (auto) 78.1 % (37.0-80.0); Nucleated Red Blood Cells % 0.2 %; Platelet Count (auto) 155 10^3/uL (140-450); Red Cell Distribution Width 14.3 % (11.8-14.3); White Blood Cell 4.2 10^3/uL (4.4-10.8)
[2024-05-23 14:22] LABS: Alanine Aminotransferase 17 U/L (7-40); Albumin 4.2 g/dL (3.2-4.8); Alkaline Phosphatase 67 U/L (46-116); Anion Gap 9 (5-15); Aspartate Aminotransferase 31 U/L (13-40); BUN/Creatinine Ratio 15.8 (10.0-20.0); Blood Urea Nitrogen 18 mg/dL (9-23); Carbon Dioxide 25 mmol/L (20-31); Chloride 105 mmol/L (98-107); Cholesterol 113 mg/dL (< 200); HDL Cholesterol 43 mg/dL (40-59); LDL Cholesterol 59 mg/dL (< 100); Potassium 4.1 mmol/L (3.5-5.1); Sodium 139 mmol/L (136-145); Triglycerides 69 mg/dL (< 150)
[2024-05-23 14:23] LABS: Total Protein 6.7 g/dL (5.7-8.2)
[2024-05-23 14:45] LABS: Bilirubin, Total < 0.2 mg/dL (0.2-1.0); Glucose 113 mg/dL (74-106)
[2024-05-23 18:38] VITALS: PULSE 90; RESP 18; O2SAT 95
[2024-05-23 18:48] VITALS: PULSE 94; RESP 18; O2SAT 97
[2024-05-23 19:35] VITALS: PULSE 80; RESP 22; O2SAT 92
[2024-05-23] MEDS: ALBUTEROL SULF 2.5 MG/0.5ML(0.5%) NEB SOLN NEB PRN (19:48)
[2024-05-23] MEDS: IPRATROPIUM BROM 0.5 MG/2.5ML INH SOL NEB PRN (19:48)
[2024-05-23 20:16] LABS: Urine Bacteria None Seen /hpf (None Seen)
[2024-05-23 20:34] LABS: Urine Blood Negative /uL (Negative); Urine Clarity Clear (Clear); Urine Color Light-Yellow (Yellow); Urine Mucus FEW (None Seen); Urine Protein, UAD TRACE (Negative); Urine Specific Gravity 1.021 (1.001-1.035); Urine Squamous Epithelial Cell FEW /hpf (<5); Urine Urobilinogen Normal (Negative); Urine WBC 1 /HPF (0-5); Urine pH 5.5 (5.0-9.0)
[2024-05-23] MEDS ORDERED: MELATONIN 5 MG TAB PO ONE (22:00)
[2024-05-23 22:12] VITALS: BP 116/68; PULSE 72; RESP 18; RESP 20; TEMP 99.4; O2SAT 95
[2024-05-23 22:17] VITALS: PULSE 72; RESP 18; O2SAT 95
[2024-05-23] MEDS: ATORVASTATIN 20 MG TAB PO SCH (22:37)
[2024-05-24] VITALS (11 sets, daily range): BP systolic 104–128; BP diastolic 54–71; PULSE 68–82; RESP 16–22; TEMP 97.5–98.6; O2SAT 90–98
[2024-05-24] MEDS: MELATONIN 5 MG TAB PO ONE (00:40)
[2024-05-24] MEDS ORDERED: SEMA4INJ SC (01:02)
[2024-05-24] MEDS ORDERED: GLIP10TA9 PO (01:02)
[2024-05-24] MEDS ORDERED: MELA3TAB27 PO (01:06)
[2024-05-24] MEDS: LEVOTHYROXINE SODIUM 25 MCG TAB PO SCH (05:57)
[2024-05-24] MEDS: LOSARTAN POTASSIUM 50 MG TAB PO SCH (10:00)
[2024-05-24 10:18] LABS: Basophils # (auto) 0 10 ^3/uL (0-0.2); Basophils % (auto) 0.5 % (0.0-2.0); Eosinophils # (auto) 0 10 ^3/uL (0-0.8); Eosinophils % (auto) 0.1 % (0.0-7.0); Hematocrit 41.8 % (36.0-46.0); Lymphocytes % (auto) 23.7 % (10.0-50.0); Mean Corpuscular Hemoglobin 31.2 pg (28.0-32.0); Mean Corpuscular Hgb Conc. 33.5 g/dL (32.0-36.0); Mean Corpuscular Volume 93.3 fL (80.0-100.0); Monocytes # (auto) 0.7 10 ^3/uL (0-1.3); Monocytes % (auto) 16.1 % (0.0-12.0); Neutrophils # (auto) 2.6 10 ^3/uL (1.6-8.6); Neutrophils % (auto) 59.6 % (37.0-80.0); Nucleated Red Blood Cells % 0.1 %; Platelet Count (auto) 197 10^3/uL (140-450); Red Blood Cells 4.48 10^6/uL (4.0-5.20); Red Cell Distribution Width 14.1 % (11.8-14.3); White Blood Cell 4.3 10^3/uL (4.4-10.8)
[2024-05-24 10:26] LABS: Chloride 102 mmol/L (98-107); Potassium 3.8 mmol/L (3.5-5.1); Sodium 138 mmol/L (136-145)
[2024-05-24 10:27] LABS: Anion Gap 8 (5-15); Carbon Dioxide 28 mmol/L (20-31)
[2024-05-24 10:28] LABS: Calcium 9.9 mg/dL (8.7-10.4)
[2024-05-24 10:32] LABS: BUN/Creatinine Ratio 21.4 (10.0-20.0); Blood Urea Nitrogen 15 mg/dL (9-23); Glucose 91 mg/dL (74-106)
[2024-05-24] MEDS ORDERED: cefTRIAXone 1GM/50ML D5W 50 ML IV ONE (11:45)
--- NOTE | 2024-05-24 13:29 | DVHDSRES ---
Discharge Summary Date of Admission Resident Creating Document: G[place]IE MO RESIDENT May 22, 2024 at 22:23 Date of Discharge: May 24, 2024 Admitting Diagnosis Acute hypoxic respiratory failure Wounds: No wounds present at this time. Labs/Diagnostic Data: Laboratory Results Test 05/24/24 12:22 05/24/24 09:50 05/23/24 20:16 05/23/24 13:15 POC Glucose 165 mg/dl (70-106) White Blood Count 4.3 10^3/uL (4.4-10.8) Red Blood Count 4.48 10^6/uL (4.0-5.20) Hemoglobin 14.0 g/dL (12.2-16.2) Hematocrit 41.8 % (36.0-46.0) Mean Corpuscular Volume 93.3 fL (80.0-100.0) Mean Corpuscular Hemoglobin 31.2 pg (28.0-32.0) Mean Corpuscular Hemoglobin Concent 33.5 g/dL (32.0-36.0) Red Cell Distribution Width 14.1 % (11.8-14.3) Platelet Count 197 10^3/uL (140-450) Mean Platelet Volume 8.7 fL (6.9-10.8) Neutrophils (%) (Auto) 59.6 % (37.0-80.0) Lymphocytes (%) (Auto) 23.7 % (10.0-50.0) Monocytes (%) (Auto) 16.1 % (0.0-12.0) Eosinophils (%) (Auto) 0.1 % (0.0-7.0) Basophils (%) (Auto) 0.5 % (0.0-2.0) Neutrophils # (Auto) 2.6 10 ^3/uL (1.6-8.6) Lymphocytes # (Auto) 1.0 10 ^3/uL (0.4-5.4) Monocytes # (Auto) 0.7 10 ^3/uL (0-1.3) Eosinophils # (Auto) 0 10 ^3/uL (0-0.8) Basophils # (Auto) 0 10 ^3/uL (0-0.2) Nucleated Red Blood Cells 0.1 % Sodium Level 138 mmol/L (136-145) Potassium Level 3.8 mmol/L (3.5-5.1) Chloride Level 102 mmol/L (98-107) Carbon Dioxide Level 28 mmol/L (20-31) Anion Gap 8 (5-15) Blood Urea Nitrogen 15 mg/dL (9-23) Creatinine 0.70 mg/dL (0.550-1.02) Glomerular Filtration Rate Calc 99 mL/min (>90) BUN/Creatinine Ratio 21.4 (10.0-20.0) Serum Glucose 91 mg/dL (74-106) Calcium Level 9.9 mg/dL (8.7-10.4) Urine Color Light-yellow (Yellow) Urine Clarity Clear (Clear) Urine pH 5.5 (5.0-9.0) Urine Specific [place] 1.021 (1.001-1.035) Urine Protein Trace (Negative) Urine Ketones Trace (Negative) Urine Blood Negative /uL (Negative) Urine Nitrite Negative (Negative) Urine Bilirubin Negative (Negative) Urine Urobilinogen Normal mg/dL (Negative) Urine Leukocyte Esterase Negative /uL (Negative) Urine RBC None seen /hpf (0 - 4) Urine Microscopic WBC 1 /HPF (0-5) Urine Squamous Epithelial Cells Few /hpf (<5) Urine Bacteria None seen /hpf (None Seen) Urine Mucus Few (None Seen) Urine Glucose Normal mg/dL (Normal) Hemoglobin A1c 6.1 % A1C (<5.7) Total Bilirubin < 0.2 mg/dL (0.2-1.0) Aspartate Amino Transferase (AST) 31 U/L (13-40) Alanine Aminotransferase (ALT) 17 U/L (7-40) Alkaline Phosphatase 67 U/L (46-116) Total Protein 6.7 g/dL (5.7-8.2) Albumin 4.2 g/dL (3.2-4.8) Triglycerides Level 69 mg/dL (< 150) Cholesterol Level 113 mg/dL (< 200) LDL Cholesterol 59 mg/dL (< 100) HDL Cholesterol 43 mg/dL (40-59) Thyroid Stimulating Hormone (TSH) 0.51 uIU/mL (0.55-4.78) Free Thyroxine (T4) Calculated 1.03 ng/dL (0.89-1.76) Test 05/22/24 21:05 05/22/24 20:34 05/22/24 17:34 Troponin I High Sensitivity 3 ng/L (</=34) Influenza Type A Antigen Positive (Negative) Influenza Type B Antigen Negative (Negative) SARS-CoV-2 Antigen (Rapid) Negative (NEGATIVE) Differential Total Cells Counted 100.0 (100) Neutrophils % (Manual) 66 (37.0-80.0) Band Neutrophils % (Manual) 0 Lymphocytes % (Manual) 25 (10.0-50.0) Monocytes % (Manual) 9 (0-12) Eosinophils % (Manual) 0 (0-7) Basophils % (Manual) 0 (0.0-2.0) Metamyelocytes % (manual) 0 Myelocytes % (Manual) 0 Promyelocytes % (Manual) 0 Blast Cells % (Manual) 0 Reactive Lymphocytes 0 Smudge Cells 1 /100 WBC Platelet Estimate Adequate D-Dimer, Quantitative 0.34 mg/L FEU (0.0-0.49) B-Type Natriuretic Peptide 29.86 pg/mL (0-100) Lipase 25 U/L (12-53) Other Laboratory Tests 05/24/24 09:50 Brief Hx & Hospital Course: Hospitalization course: This is a 58-year-old female with past medical history of hypertension, type 2 diabetes, hypothyroidism, hyperlipidemia who presented to the ED with chief complaint of shortness of breaths. The patient stated that she started feeling fever/chills, shortness of breath that started progressively getting worse in the past couple of days associated with cough. The patient also reported that one of her nephews was apparently sick nose. On admission, patient was saturating 88% and was placed on 3 L of oxygen through nasal cannula. Initial chest x-ray was performed showing no evidence of clear consolidations at that time. Initial CBC and BNP were grossly unremarkable. Troponins came back negative, BNP was normal range. The patient tested positive for influenza A. The patient was started on IV azithromycin, ceftriaxone and oseltamivir 75 mg b.i.d. respiratory therapy with albuterol and ipratropium was given p.r.n. as well. Home medications were resumed for hypothyroidism, hypertension and diabetes. Today, patient was re-evaluated at bedside, patient was saturating 95% on room air and denied shortness of breath, chest pain, fever/chills or any other complaint at this time. The patient will be discharged home on azithromycin 500mg po first day, then azithromycin 250mg po daily for 4 additional days. and oseltamivir 75 mg q.12 for three additional days. Patient agrees and understands the plan. Admitting diagnosis: Acute hypoxic respiratory failure Discharge plan -azithromycin 500mg po first day, then azithromycin 250mg po daily for 4 additional days. -oseltamivir 75 mg q.12 for three days to complete five days of treatment -follow-up with the her PCP in one week Consults/Reason for consult N/A Operations or Procedures CLINICAL INFORMATION: 58 years old, Female; Shortness of breath. TECHNIQUE: Single AP portable chest radiograph was obtained. COMPARISON: XY CHEST PORTABLE on DOS: 09/03/22 FINDINGS: Lungs: Mild atelectasis in the lung bases. No focal consolidation. No pneumothorax or pleural effusion. Cardiac: Heart size is within normal limits. Pulmonary vasculature: Unremarkable. Mediastinum/savita: Unremarkable. Bones: No acute osseous abnormality identified. Other: No other significant findings. IMPRESSION: Mild bibasilar atelectasis. No focal consolidation or other acute radiographic abnormality identified in the chest. Condition at Discharge: Good Final Diagnosis/Problems List Acute hypoxic respiratory failure likely due to influenza A Possible gram +/- bacterial pneumonia Primary hypertension Hypothyroidism Dyslipidemia Type 2 diabetes mellitus Morbid obesity Discharge Disposition: Home Discharge Instruct/Medications Diet: Regular Activity: No Restrictions, As Tolerated Follow Up/Referral: F/U with her PCP in 1 week Medications: azithromycin 500mg po first day, then azithromycin 250mg po daily for 4 additional days. Oseltamivir 75 mg Q12 for 3 days Discharge Statement: "Patient was advised to return to the ER or call 911 if any headaches, dizziness, shortness of breath, chest pain, abdominal pain, bleeding, fevers, or worsening of medical condition. Patient was counseled about treatment plan, medications, possible side effects, patientverbalized understanding. All questions were answered to the best of my ability. This discharge took greater then 30 minutes in planning, reviewing documentation, counseling the patient, and discussing with other team members." ASSESSMENT ASSESSMENT Assessment Acute hypoxic respiratory failure likely due to influenza A Possible gram +/- bacterial pneumonia Primary hypertension Hypothyroidism Dyslipidemia Type 2 diabetes mellitus Morbid obesity Date of Service: May 24, 2024 Billing Provider: SHELBY CONNELLY MD Common Visit Codes: 78201-STX/OBS DISCH DAY >30min [place] RESIDENT May 24, 2024 13:29 SHELBY CONNELLY MD May 25, 2024 09:54
[2024-05-24] MEDS ORDERED: OSEL75CA5 PO (13:36)
[2024-05-24] MEDS ORDERED: DOXY1CAP57 PO (13:36)
[2024-05-24] MEDS ORDERED: AZIT500T66 PO (14:57)
[2024-05-24] MEDS ORDERED: AZIT-43 PO (14:57)
== END 2024-05-24 17:15 | disposition home or self-care (01) | DRG 720 ==
LOC: EDBD 16:47 → ER 16:47 → TELE 22:23 → TELE-WESTW 05-23 21:55
PROVIDERS: ADMIT Student in an Organized Health Care Education/Training Program; ATTEND Student in an Organized Health Care Education/Training Program
DX: A41.9 Sepsis, unspecified organism (principal); J96.01 Acute respiratory failure with hypoxia; J10.08 Influenza due to other identified influenza virus with other specified pneumonia; J15.69 Pneumonia due to other Gram-negative bacteria; J12.9 Viral pneumonia, unspecified; J15.9 Unspecified bacterial pneumonia; I10 Essential (primary) hypertension; E03.9 Hypothyroidism, unspecified; E78.5 Hyperlipidemia, unspecified; E11.9 Type 2 diabetes mellitus without complications; Z20.822 Contact with and (suspected) exposure to COVID-19; E66.01 Morbid (severe) obesity due to excess calories; Z83.3 Family history of diabetes mellitus; Z88.0 Allergy status to penicillin; Z88.1 Allergy status to other antibiotic agents; Z90.710 Acquired absence of both cervix and uterus; Z68.27 Body mass index [BMI] 27.0-27.9, adult
CPT/HCPCS: 36415; 71045; 80048; 80053; 80061; 81001; 82962; 83036; 83690; 83880; 84439; 84443; 84484; 85007; 85025; 85027; 85379; 87426; 87804; 94640; G0378; J1100; J1815; J3490

== ENCOUNTER 2025-01-05 08:28 | Inpatient (IN) | payer MEDICAID ==
[2025-01-05] VITALS (10 sets, daily range): BP systolic 92–146; BP diastolic 62–103; PULSE 76–112; RESP 10–22; TEMP 98.6–99.3; O2SAT 95–99
[~2025-01-05] VITALS: Ht 157.5 cm; Wt 120.1 kg
[~2025-01-05 08:28] MED LIST changes: +AZIT-43 PO; +AZIT500T66 PO; +GLIP10TA9 PO; +MELA3TAB27 PO; +OSEL75CA5 PO; +SEMA4INJ SC
--- NOTE | 2025-01-05 08:46 | ED.PDOC ---
SOB-HPI HPI Comments This is a 59 year old female presenting to the ED with chief complaint of SOB. Patient reports that she has been experiencing SOB with associated nasal congestion and headache since yesterday. Patient's O2 saturation in triage was noted to be 88% on RA and 94% on 4L of O2. Patient denies any chest pain, dizziness, N/V, fever, chills, or cough. Chief Complaint: Shortness of Breath Time Seen by MD: 08:45 Primary Care Provider: AMADAIES Reviewed notes: Nurses Notes, Medications, Allergies Information Source: Patient Mode of Arrival: Ambulatory Severity: Moderate Timing: Hours Duration: Since onset Context: At Rest PE Risk Factors: None History of: None Prehospital treatment: None Modifying Factors: Nothing Associated Signs and Symptoms: Nasal Congestion Past Medical History PAST MEDICAL HISTORY: High Lipids, HTN Surgical History: BTL, , Hysterectomy RECREATIONAL COUNSELOR History: Denies all RECREATIONAL COUNSELOR Hx Family History Family History: Reviewed,noncontributory to illness, Family hx of DM, Family hx of Cancer Social History Smoker: Non-Smoker, Quit Greater Than 1 Year Alcohol: Denies ETOH Use Drugs: Denies Drug Use Lives In: Home Constitutional: denies: chills, diaphoresis, fatigue, fever, malaise, sweats, weakness, others EENTM: reports: nose congestion; denies: blurred vision, double vision, ear bleeding, ear discharge, ear drainage, ear pain, ear ringing, eye pain, eye redness, hearing loss, mouth pain, mouth swelling, nasal discharge, nose bleeding, nose pain, photophobia, tearing, throat pain, throat swelling, voice changes, others Respiratory: reports: shortness of breath; denies: cough, hemoptysis, orthopne a, SOB at rest, SOB with excertion, stridor, wheezing, others Cardiovascular: denies: chest pain, dizzy spells, diaphoresis, Dyspnea on exertion, edema, irregular heart beat, left arm pain, lightheadedness, palpitations, PND, syncope, others Gastrointestinal: denies: abdomen distended, abdominal pain, blood streaked bowels, constipated, diarrhea, dysphagia, difficulty swallowing, hematemesis, melena, nausea, poor appetite, poor fluid intake, rectal bleeding, rectal pain, vomiting, others Genitourinary: denies: abnormal vagina bleeding, burning, dyspareunia, dysuria, flank pain, frequency, hematuria, incontinence, pain, , vagina discharge, urgency, others Neurological: reports: headache; denies: dizziness, fainting, left sided numbness, left sided weakness, numbness, paresthesia, pre-existing deficit, right sided numbness, right sided weakness, seizure, speech problems, tingling, tremors, weakness, others Musculoskeletal: denies: back pain, gout, joint pain, joint swelling, muscle pain, muscle stiffness, neck pain, others Integumetry: denies: bruises, change in color, change in hair/nails, dryness, laceration, lesions, lumps, rash, wounds, others Allergic/Immunocompromised: denies: Difficulty Healing, Frequent Infections, Hives, Itching, others Hematologic/Lymphatic: denies: anemia, blood clots, easy bleeding, easy bruising, swollen glands, others Endocrine: denies: excessive hunger, excessive sweating, excessive thirst, excessive urination, flushing, intolerance to cold, intolerance to heat, unexplained weight gain, unexplained weight loss, others Psychiatric: denies: anxiety, bipolar disorder, depression, hopeless, panic disorder, schizophrenia, sleepless, suicidal, others All Other Systems: Reviewed and Negative Physical Exam General Appearance: Moderate Distress, Normal HEENT: Normal ENT Inspection, Pharynx Normal, TMs Normal Neck: Full Range of Motion, Non-Tender, Normal, Normal Inspection Respiratory: Accessory Muscle Use, Chest Non-Tender, Respiratory Distress Cardiovascular: No Edema, No JVD, No Murmur, No Gallop, Normal Peripheral Pulses, Regular Rate/Rhythm Breast Exam: Deferred Gastrointestinal: No Organomegaly, Non Tender, No Pulsatile Mass, Normal Bowel Sounds, Soft Genitalia: Deferred Pelvic: Deferred Rectal: Deferred Extremities: No calf tenderness, Normal capillary refill, Normal inspection, Normal range of motion, Non-tender, No pedal edema Musculoskeletal : Apperance: Normal Neurologic: Alert, pilot II-XII nml as Tested, No Motor Deficits, Normal Affect, Normal Mood, No Sensory Deficits Cerebellar Function: NOT DONE Reflexes: NOT DONE Skin: Dry, Normal Color, Warm Peripheral Pulses: 3+ Radial (R), 3+ Radial (L) Lymphatic: No Adenopathy Was a procedure done? Was a procedure done?: No Differential Dx Differential Diagnosis: Anxiety, Asthma, Bronchitis, CHF, COPD X-Ray, Labs, Meds, VS Vital Signs Date Time Temp Pulse Resp B/P (MAP) Pulse Ox O2 Delivery O2 Flow Rate FiO2 01/05/25 09:22 99.3 01/05/25 09:05 104 01/05/25 08:29 101.1 121 24 142/72 92 101.1 Lab Test 01/05/25 09:10 Range/Units White Blood Count 6.0 4.4-10.8 10^3/uL Red Blood Count 4.72 4.0-5.20 10^6/uL Hemoglobin 14.5 12.2-16.2 g/dL Hematocrit 43.2 36.0-46.0 % Mean Corpuscular Volume 91.4 80.0-100.0 fL Mean Corpuscular Hemoglobin 30.7 28.0-32.0 pg Mean Corpuscular Hemoglobin Concent 33.6 32.0-36.0 g/dL Red Cell Distribution Width 14.0 11.8-14.3 % Platelet Count 203 140-450 10^3/uL Mean Platelet Volume 8.6 6.9-10.8 fL Neutrophils (%) (Auto) 75.7 37.0-80.0 % Lymphocytes (%) (Auto) 11.2 10.0-50.0 % Monocytes (%) (Auto) 11.7 0.0-12.0 % Eosinophils (%) (Auto) 0.9 0.0-7.0 % Basophils (%) (Auto) 0.5 0.0-2.0 % Neutrophils # (Auto) 4.5 1.6-8.6 10 ^3/uL Lymphocytes # (Auto) 0.7 0.4-5.4 10 ^3/uL Monocytes # (Auto) 0.7 0-1.3 10 ^3/uL Eosinophils # (Auto) 0.1 0-0.8 10 ^3/uL Basophils # (Auto) 0 0-0.2 10 ^3/uL Nucleated Red Blood Cells 0.1 % Sodium Level 142 136-145 mmol/L Potassium Level 4.1 3.5-5.1 mmol/L Chloride Level 105 98-107 mmol/L Carbon Dioxide Level 26 20-31 mmol/L Anion Gap 11 5-15 Blood Urea Nitrogen 13 9-23 mg/dL Creatinine 0.73 0.550-1.02 mg/dL Glomerular Filtration Rate Calc 94 >90 mL/min BUN/Creatinine Ratio 17.8 10.0-20.0 Serum Glucose 124 H 74-106 mg/dL Lactic Acid Level 1.6 0.4-2.0 mmol/L Calcium Level 8.8 8.7-10.4 mg/dL Total Bilirubin 0.3 0.2-1.0 mg/dL Aspartate Amino Transferase (AST) 25 13-40 U/L Alanine Aminotransferase (ALT) 19 7-40 U/L Alkaline Phosphatase 104 46-116 U/L Troponin I High Sensitivity < 3 L </=34 ng/L B-Type Natriuretic Peptide 31.33 0-100 pg/mL Total Protein 6.7 5.7-8.2 g/dL Albumin 4.1 3.2-4.8 g/dL Current Medications Medications (Trade) Dose Ordered Sig/Taras Route Start Time Stop Time Status Last Admin Acetaminophen (Tylenol Tablet) 650 mg ONCE ONCE PO 01/05/25 08:45 01/05/25 08:46 DC 01/05/25 09:22 Azithromycin 250 ml @ 125 mls/hr ONCE ONCE IV 01/05/25 09:15 01/05/25 11:14 01/05/25 10:17 [place] [id number] Ph: [phone] DIAGNOSTIC IMAGING Diagnostic Imaging Report : [id number] Signed PATIENT: JEFF FRIEND ACCT: [id number] UNIT: [id number] : 1965 LOC: ER ROOM / BED: / AGE / SEX: 59 / F ADM STATUS: REG ER SERVICE 0908 ORDERING PHYSICIAN: CHILANGO CHASE MD PROCEDURE(s): CXRP - CHEST PORTABLE REASON: sob ORDER NUMBER(s): [id number], ACCESSION NUMBER(s): [id number] CHEST RADIOGRAPH Indication: sob Technique: Single frontal view of the chest was obtained COMPARISON: XY CHEST PORTABLE on DOS: 05/22/24, CT CT ANGIO CHEST CONTRAST on DOS: 09/03/22, XY CHEST PORTABLE on DOS: 09/03/22 FINDINGS: Lines and Tubes: None Lungs: Clear Pleura: No effusion. No pneumothorax. Cardiomediastinal contours: Unremarkable Bones: Unremarkable IMPRESSION: No acute disease. ATED BY: DEO MARY MD DICTATED DATE/TIME: 01/05/25949 SIGNED BY: DEO MARY MD SIGNED DATE/TIME: 01/05/25949 CC: Patient alert. Came in because shortness of breath. Placed on oxygen. Has fever. Sepsis protocol. Chest x-ray reviewed does not show any acute changes. Possible pneumonitis. She is overweight. Continue to monitor. Time of 1ST Reevaluation: 09:44 Reevaluation 1ST: Unchanged Patient Education/Counseling: Diagnosis, Treatment Family Education/Counseling: No Family Present SEPSIS Sepsis Screen Date sepsis recognized/suspect: Jan 05, 2025 Time Sepsis recognized/suspect: 830 Recent Procedure: No On Antibiotic Therapy: No Respiratory Rate >20: No Heart Rate >90: Yes Temp<36 C (96.8 F) or >38.3 C: No SBP <90 or MAP <65 mmHG: No New Acute Mental Status Change: No Is the patient on CPAP, BIPAP,: No Physician Orders Chest Portable (01/05/25 09:08) Urinalysis (01/05/25 09:08) Troponin-I Hs (01/05/25 10:08) Troponin-I Hs (01/05/25 12:08) Blood Culture (01/05/25 09:08) Azithromycin 500mg/ 250ml (Zithromax 50 (01/05/25 09:15) Vital Signs Date Time Temp Pulse Resp B/P (MAP) Pulse Ox O2 Delivery O2 Flow Rate FiO2 01/05/25 09:22 99.3 01/05/25 09:05 104 01/05/25 08:29 101.1 121 24 142/72 92 101.1 Laboratory Tests Test 01/05/25 09:10 Lactic Acid Level 1.6 mmol/L (0.4-2.0) White Blood Count 6.0 10^3/uL (4.4-10.8) Medications Medications Dose Ordered Sig/Taras Route Start Time Stop Time Status Last Admin Dose Admin Acetaminophen 650 mg ONCE ONCE PO 01/05/25 08:45 01/05/25 08:46 DC 01/05/25 09:22 Azithromycin 250 ml @ 125 mls/hr ONCE ONCE IV 01/05/25 09:15 01/05/25 11:14 01/05/25 10:17 Departure 1 Departure Time of Disposition: 10:31 Impression: Primary Impression: Acute respiratory distress Additional Impressions: Sepsis, unspecified organism Qualified Codes: A41.9 - Sepsis, unspecified organism Pneumonitis Disposition: ADMITTED INPATIENT Admit to: Med Surg Condition: Guarded Critical Care Note Critical Care Time?: Yes (90 min-critical care time only) Stability Stability form required: No Heart Score Heart Score: Heart Score Response (Comments) Value History Slightly Suspicious 0 EKG Normal 0 Age 45-64 1 Risk Factors >3 or Hx ASHD 2 Troponin Normal limit 0 Total 3 I personally scribed for CHILANGO CHASE MD ([email or web address]) on 01/05/25 at 08:46. Electronically submitted by Lam Grimes ([email or web address]). I personally scribed for CHILANGO CHASE MD ([email or web address]) on 01/05/25 at 10:27. Electronically submitted by Lam Grimes ([email or web address]). CHILANGO CHASE MD Jan 05, 2025 08:46
--- NOTE | 2025-01-05 09:19 | ECG ---
[facility], [place] Test Date: 2025-01-05 Test Time: 09:05:13 Pat Name: JEFF FRIEND Department: Room: 0204 Gender: F Mirror Silverer: NELSON : 1965 Requested By: CHILANGO CHASE Order Number: [id number] Reading MD: Josh Campbell Measurements Intervals [place] Rate: 104 P: -16 NM: 165 QRS: 59 QRSD: 88 T: 45 QT: 326 QTc: 429 Interpretive Statements Sinus tachycardia Low voltage, precordial leads Baseline wander in lead(s) V6 Electronically Signed On 01-11-2025 19:08:21 PDT by Josh Campbell Please click the below link to view image of tracing.
[2025-01-05] MEDS: ACETAMINOPHEN 325 MG TAB PO ONE (09:22)
[2025-01-05 09:34] LABS: Hematocrit 43.2 % (36.0-46.0); Hemoglobin 14.5 g/dL (12.2-16.2); Mean Corpuscular Hemoglobin 30.7 pg (28.0-32.0); Mean Corpuscular Volume 91.4 fL (80.0-100.0); Nucleated Red Blood Cells % 0.1 %
--- NOTE | 2025-01-05 09:53 | DVH ---
CHEST RADIOGRAPH Indication: sob Technique: Single frontal view of the chest was obtained COMPARISON: XY CHEST PORTABLE on DOS: 05/22/24, CT CT ANGIO CHEST CONTRAST on DOS: 09/03/22, XY CHEST PO RTABLE on DOS: 09/03/22 FINDINGS: Lines and Tubes: None Lungs: Clear Pleura: No effusion. No pneumothorax. Cardiomediastinal contours: Unremarkable Bones: Unremarkable IMPRESSION: No acute disease.
[2025-01-05 09:59] LABS: Alanine Aminotransferase 19 U/L (7-40); Albumin 4.1 g/dL (3.2-4.8); Alkaline Phosphatase 104 U/L (46-116); Anion Gap 11 (5-15); BUN/Creatinine Ratio 17.8 (10.0-20.0); Blood Urea Nitrogen 13 mg/dL (9-23); Calcium 8.8 mg/dL (8.7-10.4); Carbon Dioxide 26 mmol/L (20-31); Chloride 105 mmol/L (98-107); Potassium 4.1 mmol/L (3.5-5.1); Sodium 142 mmol/L (136-145); Total Protein 6.7 g/dL (5.7-8.2)
[2025-01-05 10:00] LABS: Bilirubin, Total 0.3 mg/dL (0.2-1.0); Glucose 124 mg/dL (74-106)
[2025-01-05] MEDS: AZITHROMYCIN 500MG/ 250ML 250 ML IV ONE (10:17)
[2025-01-05] MEDS: VANCOMYCIN 1GM/250ML KIT 250 ML IV ONE (11:09)
[2025-01-05 11:53] LABS: Urine Amorphous Crystal MOD /hpf (None Seen); Urine Protein, UAD TRACE (Negative)
[2025-01-05] MEDS ORDERED: DEXTROSE (50%) 50ML SYRG IV PRN (14:30)
[2025-01-05] MEDS ORDERED: ONDANSETRON HCL 4 MG/2 ML VIAL IV PRN (14:30)
[2025-01-05] MEDS ORDERED: MORPHINE SULFATE INJ 2 MG/ml SYRG IV PRN (14:30)
[2025-01-05] MEDS ORDERED: NITROGLYCERIN 0.4 MG SL TAB SL PRN (14:30)
--- NOTE | 2025-01-05 14:45 | DVHHPRES ---
History of Present Illness Resident Creating Document: HIRAM BARDALES RESIDENT Reason for Visit: Acute hypoxic respiratory failure History of Present Illness 59-year-old female with past medical history of hypertension, type 2 diabetes, hypothyroidism, hyperlipidemia who presented to the ED with chief complaint of shortness of breaths. The patient stated that she started feeling fever/chills, shortness of breath that started progressively getting worse in the past 3-4 of days associated with cough. The patient mentions having a 2-year-old grandson who was sick last Friday, suggesting a possible source of exposure. The patient reports a history of smoking, having quit nearly 6 years ago after smoking a pack a day since age 11. She currently lives with her 82-year-old mother. PCP: Dr. Sapp Past Medical History hypertension, type 2 diabetes, hypothyroidism, hyperlipidemia Smoke: Quit (Six year ago, she has smoking one pack per day for more than 45 years) ALCOHOL: none Drugs: None Lives: with Family Review of Systems Review of Systems Constitutional: Reports fever, minimally weakness and fatigue. Denies weight loss HEENT: Denies changes in vision and hearing. Respiratory: Reports shortness of breath and cough. Cardiovascular: Denies chest discomfort or palpitations GI: Denies abdominal pain, nausea, vomiting and diarrhea. : Denies dysuria and urinary frequency. Musculoskeletal: Denies myalgias and joint pain Skin: Denies rash and pruritus. Neurological: Denies dizziness, headache, vision or hearing problems Allergies: Coded Allergies: Penicillins (Verified Allergy, Unknown, 09/03/22) Tetracycline (Verified Allergy, Unknown, 09/03/22) Medications Current Medications Medications Dose Ordered Sig/Taras Route Start Time Stop Time Status Last Admin Dose Admin Ondansetron HCl 4 mg Q4HP PRN IV 01/05/25 14:30 Enoxaparin Sodium 40 mg DAILY SC 01/06/25 10:00 Acetaminophen 650 mg Q6HP PRN PO 01/05/25 14:30 Nitroglycerin 0.4 mg Q5MINP PRN SL 01/05/25 14:30 Morphine Sulfate 2 mg Q30M PRN IV 01/05/25 14:30 Albuterol 2.5 mg Q4HR NEB 01/05/25 18:00 Ipratropium Lyle 0.5 mg Q4HR NEB 01/05/25 18:00 Diagnostic Test (Pha) 1 strip ACHS 01/05/25 17:00 Insulin Human Regular ACHS SC 01/05/25 17:00 Dextrose 50 ml UD PRN IV 01/05/25 14:30 Exam Vital Signs Vital Signs Date Time Temp Pulse Resp B/P (MAP) Pulse Ox O2 Delivery O2 Flow Rate FiO2 01/05/25 13:38 78 10 96 Nasal Cannula* 4 36 01/05/25 13:26 99.3 146/103 (117) 99.3 Exam General: Patient alert and oriented in person, place and time. Patient is minimally fatigued and weak. Patient following commands. HEENT: Normocephalic, atraumatic, moist mucous membranes Respiratory/pulmonary: Mild wheezing bilaterally, no associated crackles or wheezes. Currently on 4L/min of O2 through Nasal cannula. Cardiovascular: Normal heart sounds S1 and S2 with no associated murmurs Abdomen: Abdomen nondistended, there is no pain to palpation in any of the abdominal quadrants, no palpable masses. Extremities: There is no peripheral edema present at the lower extremities. Peripheral Pulses: 3+ Radial (R). 3+ Radial (L). 3+ Dorsalis pedis (R). 3+ Dorsalis pedis(L) Skin: No rashes or pruritus, there is no sacral edema present at this time. Neurological: Intact cranial nerves with no focal neurologic deficits Labs/Xrays Labs Test 01/05/25 13:12 01/05/25 13:11 01/05/25 10:24 01/05/25 09:10 Range/Units Troponin I High Sensitivity < 3 L </=34 ng/L Urine Color Light-orange Yellow Urine Clarity Ex.turbid Clear Urine pH 5.5 5.0-9.0 Urine Specific [place] 1.027 1.001-1.035 Urine Protein Trace H Negative Urine Ketones Negative Negative Urine Blood Negative Negative /uL Urine Nitrite Negative Negative Urine Bilirubin Negative Negative Urine Urobilinogen Normal Negative mg/dL Urine Leukocyte Esterase Negative Negative /uL Urine RBC 2 0 - 4 /hpf Urine Microscopic WBC < 1 0-5 /HPF Urine Squamous Epithelial Cells Few <5 /hpf Urine Amorphous Crystals Mod None Seen /hpf Urine Bacteria Few H None Seen /hpf Urine Glucose Normal Normal mg/dL White Blood Count 6.0 4.4-10.8 10^3/uL Red Blood Count 4.72 4.0-5.20 10^6/uL Hemoglobin 14.5 12.2-16.2 g/dL Hematocrit 43.2 36.0-46.0 % Mean Corpuscular Volume 91.4 80.0-100.0 fL Mean Corpuscular Hemoglobin 30.7 28.0-32.0 pg Mean Corpuscular Hemoglobin Concent 33.6 32.0-36.0 g/dL Red Cell Distribution Width 14.0 11.8-14.3 % Platelet Count 203 140-450 10^3/uL Mean Platelet Volume 8.6 6.9-10.8 fL Neutrophils (%) (Auto) 75.7 37.0-80.0 % Lymphocytes (%) (Auto) 11.2 10.0-50.0 % Monocytes (%) (Auto) 11.7 0.0-12.0 % Eosinophils (%) (Auto) 0.9 0.0-7.0 % Basophils (%) (Auto) 0.5 0.0-2.0 % Neutrophils # (Auto) 4.5 1.6-8.6 10 ^3/uL Lymphocytes # (Auto) 0.7 0.4-5.4 10 ^3/uL Monocytes # (Auto) 0.7 0-1.3 10 ^3/uL Eosinophils # (Auto) 0.1 0-0.8 10 ^3/uL Basophils # (Auto) 0 0-0.2 10 ^3/uL Nucleated Red Blood Cells 0.1 % Sodium Level 142 136-145 mmol/L Potassium Level 4.1 3.5-5.1 mmol/L Chloride Level 105 98-107 mmol/L Carbon Dioxide Level 26 20-31 mmol/L Anion Gap 11 5-15 Blood Urea Nitrogen 13 9-23 mg/dL Creatinine 0.73 0.550-1.02 mg/dL Glomerular Filtration Rate Calc 94 >90 mL/min BUN/Creatinine Ratio 17.8 10.0-20.0 Serum Glucose 124 H 74-106 mg/dL Lactic Acid Level 1.6 0.4-2.0 mmol/L Calcium Level 8.8 8.7-10.4 mg/dL Total Bilirubin 0.3 0.2-1.0 mg/dL Aspartate Amino Transferase (AST) 25 13-40 U/L Alanine Aminotransferase (ALT) 19 7-40 U/L Alkaline Phosphatase 104 46-116 U/L B-Type Natriuretic Peptide 31.33 0-100 pg/mL Total Protein 6.7 5.7-8.2 g/dL Albumin 4.1 3.2-4.8 g/dL SEPSIS Sepsis Screen Date sepsis recognized/suspect: Jan 05, 2025 Time Sepsis recognized/suspect: 854 Recent Procedure: No On Antibiotic Therapy: Yes Respiratory Rate >20: Yes Heart Rate >90: Yes Temp<36 C (96.8 F) or >38.3 C: Yes SBP <90 or MAP <65 mmHG: No New Acute Mental Status Change: No Is the patient on CPAP, BIPAP,: No Physician Orders Chest Portable (01/05/25 09:08) Blood Culture (01/05/25 09:08) Covid19 Antigen Fiona (01/05/25 ) Rapid Influenza A&B (01/05/25 11:58) Admit (01/05/25 14:24) Code Status (01/05/25 14:24) 2 Gm Sodium Diet (01/05/25 Dinner) Oxygen Per Hour (01/05/25 14:24) Ondansetron Hcl (Zofran) (01/05/25 14:30) Enoxaparin Sodium (Lovenox) (01/06/25 10:00) Complete Blood Count (01/06/25 04:00) Comprehensive Metabolic Panel (01/06/25 04:00) Condition: Fair (01/05/25 14:24) Acetaminophen Tablet (Tylenol Tablet) (01/05/25 14:30) Nitroglycerin Sublingual (Ntrostat Subli (01/05/25 14:30) Morphine Sulfate Injection (01/05/25 14:30) Oxygen By Nasal Cannula (01/05/25 14:24) Stat Ekg For Chest Pain (01/05/25 14:24) Notify Md Of Changes From Base (01/05/25 14:24) Game Show Host For 24 Hours (01/05/25 14:24) Emergency Dysrhythmia Protocol (01/05/25 14:24) Rhythm Strips Once Every Shift (01/05/25 14:24) Albuterol Medneb (Ventolin Medneb) (01/05/25 18:00) Ipratropium Medneb (Atrovent Medneb) (01/05/25 18:00) Glucose Blood (Accu-Chek Comfort Curve T (01/05/25 17:00) Insulin R (Human) (Insulin R) (01/05/25 17:00) Dextrose 50% Syringe (01/05/25 14:30) Vital Signs Date Time Temp Pulse Resp B/P (MAP) Pulse Ox O2 Delivery O2 Flow Rate FiO2 01/05/25 13:38 78 10 96 Nasal Cannula* 4 36 01/05/25 13:26 99.3 112 21 146/103 (117) 97 99.3 01/05/25 13:26 112 21 97 Nasal Cannula* 4 36 01/05/25 12:00 83 13 112/70 (84) 94 01/05/25 11:00 96 18 105/77 (86) 98 01/05/25 10:22 98.9 01/05/25 10:00 98.9 90 17 143/73 (96) 95 98.9 01/05/25 09:22 99.3 01/05/25 09:05 104 01/05/25 09:00 109 19 134/74 (94) 96 01/05/25 08:59 99.3 112 21 146/103 (117) 97 99.3 01/05/25 08:29 101.1 121 24 142/72 92 101.1 Laboratory Tests Test 01/05/25 09:10 Lactic Acid Level 1.6 mmol/L (0.4-2.0) White Blood Count 6.0 10^3/uL (4.4-10.8) Medications Medications Dose Ordered Sig/Taras Route Start Time Stop Time Status Last Admin Dose Admin Acetaminophen 650 mg ONCE ONCE PO 01/05/25 08:45 01/05/25 08:46 DC 01/05/25 09:22 650 MG Azithromycin 250 ml @ 125 mls/hr ONCE ONCE IV 01/05/25 09:15 01/05/25 11:14 DC 01/05/25 10:17 125 MLS/HR Vancomycin HCl 250 ml @ 250 mls/hr ONCE ONCE IV 01/05/25 09:15 01/05/25 10:14 DC 01/05/25 11:09 250 MLS/HR Assessment/Plan Assessment/Plan # Acute hypoxic respiratory failure likely due to pneumonia # Influenza A and B positive # possible Gram-positive/negative bacterial pneumonia -initial chest x-ray was grossly clear with no evidence of clear consolidations - start oseltamivir 75 mg PO daily -start IV Rocephin and azithromycin IV -respiratory therapy with albuterol and ipratropium p.r.n. -symptomatic management with acetaminophen # Sepsis likely from above. - patient's temperature was 101.1 - tachycardia, pulse was 121; tachypnea, RR was 24 -Blood culture ordered # Primary hypertension -blood pressure running in the lower side at this time -we will resume home losartan 100 mg daily tomorrow a.m. once blood pressure on normal range. -monitor blood pressure closely # Hypothyroidism -order TSH and free T4 -resume home levothyroxine 25 mcg q.a.m. # Dyslipidemia -order lipid panel -start atorvastatin 40 mg daily # Type 2 diabetes mellitus -Ordered hemoglobin A1c -start sliding scale insulin -monitor blood glucose # open-angle glaucoma - patient was diagnosed with glaucoma six weeks ago and currently using lat anoprost eyedrops - follow up with outpatient health technical writer # Morbid obesity -BMI 47.7 - patient is on Ozempic 2 mg/weekly -consult on diet, lifestyle modifications and exercise as tolerated. Goal of care discussed with patient for 32 minutes: Full code Plan discussed with Dr. Gao Plan discussed with: Patient My Orders Orders - HIRAM BARDALES RESIDENT Procedure Category Date Status Time Admit ADMIT 01/05/25 Transmitted 14:24 Code Status CODE 01/05/25 Transmitted 14:24 2 Gm Sodium Diet DIET 01/05/25 Transmitted Dinner Oxygen Per Hour RT 01/05/25 Transmitted 14:24 Ondansetron Hcl PHA 01/05/25 In Process (Zofran) 14:30 Enoxaparin Sodium PHA 01/06/25 In Process (Lovenox) 10:00 Complete Blood Count LAB 01/06/25 Verified 04:00 Comprehensive LAB 01/06/25 Verified Metabolic Panel 04:00 Condition: Fair LAINA 01/05/25 In Process 14:24 Acetaminophen Tablet PHA 01/05/25 In Process (Tylenol Tablet) 14:30 Nitroglycerin PHA 01/05/25 In Process Sublingual (Ntrostat 14:30 Morphine Sulfate PHA 01/05/25 In Process Injection 14:30 Oxygen By Nasal RT 01/05/25 Transmitted Cannula 14:24 Stat Ekg For Chest LAINA 01/05/25 In Process Pain 14:24 Notify Md Of Changes [facility] 01/05/25 In Process From Base 14:24 Game Show Host For [facility] 01/05/25 In Process 24 Hours 14:24 Emergency Dysrhythmia [facility] 01/05/25 In Process Protocol 14:24 Rhythm Strips Once [facility] 01/05/25 In Process Every Shift 14:24 Albuterol Medneb [facility] 01/05/25 In Process (Ventolin Medneb) 18:00 Ipratropium Medneb PHA 01/05/25 In Process (Atrovent Medneb) 18:00 Glucose Blood [facility] 01/05/25 In Process (Accu-Chek Comfort 17:00 Insulin R (Human) PHA 01/05/25 In Process (Insulin R) 17:00 Dextrose 50% Syringe PHA 01/05/25 In Process 14:30 Date of Service: Jan 05, 2025 Billing Provider: SHELBY CONNELLY MD Common Visit Codes: [id number] INP/OBS CARE (HIGH) Secondary Visit Codes: [id number] CARE PLAN 30 MINUTES HIRAM BARDALES RESIDENT Jan 05, 2025 14:44
[2025-01-05 14:52] LABS: COVID19 ANTIGEN SOFIA FIA NEGATIVE (NEGATIVE)
[2025-01-05] MEDS: ACCU-CHEK COMFORT CURVE STRIP VI SCH (17:29)
[2025-01-05] MEDS: InsuLIN REG 1unit/0.01ml Soln (100units/ml) SC SCH (17:30)
[2025-01-05] MEDS: ALBUTEROL SULF 2.5 MG/0.5ML(0.5%) NEB SOLN NEB SCH (19:17)
[2025-01-05] MEDS: IPRATROPIUM BROM 0.5 MG/2.5ML INH SOL NEB SCH (19:18)
[2025-01-06] VITALS (16 sets, daily range): BP systolic 103–124; BP diastolic 53–79; PULSE 74–103; RESP 16–21; TEMP 97.8–100.3; O2SAT 91–100
[2025-01-06 06:04] LABS: Hematocrit 40.0 % (36.0-46.0); Hemoglobin 13.5 g/dL (12.2-16.2); Mean Corpuscular Hemoglobin 30.8 pg (28.0-32.0); Mean Corpuscular Volume 91.4 fL (80.0-100.0); Nucleated Red Blood Cells % 0.1 %
[2025-01-06 06:14] LABS: Alanine Aminotransferase 18 U/L (7-40); Alkaline Phosphatase 89 U/L (46-116); Anion Gap 9 (5-15); BUN/Creatinine Ratio 15.0 (10.0-20.0); Blood Urea Nitrogen 9 mg/dL (9-23); Calcium 8.8 mg/dL (8.7-10.4); Carbon Dioxide 30 mmol/L (20-31); Chloride 102 mmol/L (98-107); Glucose 97 mg/dL (74-106); Potassium 3.6 mmol/L (3.5-5.1); Sodium 141 mmol/L (136-145); Total Protein 6.7 g/dL (5.7-8.2)
[2025-01-06 06:27] LABS: Bilirubin, Total 0.2 mg/dL (0.2-1.0)
[2025-01-06 06:49] LABS: Albumin 3.9 g/dL (3.2-4.8)
[2025-01-06] MEDS: ALBUTEROL SULF 2.5 MG/0.5ML(0.5%) NEB SOLN NEB SCH (09:15)
[2025-01-06] MEDS: IPRATROPIUM BROM 0.5 MG/2.5ML INH SOL NEB SCH (09:15)
[2025-01-06] MEDS: ZINC SULFATE 220mg CAP or TAB PO SCH (10:36)
[2025-01-06] MEDS: OSELTAMIVIR 75 MG CAP PO SCH (10:36)
[2025-01-06] MEDS: MAGNESIUM SULFATE 1GM/100ML 100 ML IV SCH (10:36)
[2025-01-06] MEDS: ENOXAPARIN SOD 40 MG/0.4 ML SYRINGE SC SCH (10:37)
[2025-01-06] MEDS: AZITHROMYCIN 500MG/ 250ML 250 ML IV SCH (10:37)
--- NOTE | 2025-01-06 11:48 | DVHPNRES ---
Progress Note Date Seen: Jan 06, 2025 Resident Creating Document: KELVIN RAHMAN RESIDENT Medical Necessity Reason Pt with a Central, PICC or Fol: No Subjective Review of Systems 59-year-old female with past medical history of hypertension, type 2 diabetes, hypothyroidism, hyperlipidemia who presented to the ED with chief complaint of shortness of breaths. The patient stated that she started feeling fever/chills, shortness of breath that started progressively getting worse in the past 3-4 of days associated with cough. The patient mentions having a 2-year-old grandson who was sick last Friday, suggesting a possible source of exposure. PCP: Dr. Sapp Past Medical History -hypertension, type 2 diabetes, hypothyroidism, hyperlipidemia PH/SH- Smoke: Quit (Six year ago, she has smoking one pack per day for more than 45 years), denies substance use or alcoholism, lives in home Constitutional: Reports fever, minimally weakness and fatigue. Denies weight loss HEENT: Denies changes in vision and hearing. Respiratory: Reports shortness of breath and cough. Cardiovascular: Denies chest discomfort or palpitations GI: Denies abdominal pain, nausea, vomiting and diarrhea. : Denies dysuria and urinary frequency. Musculoskeletal: Denies myalgias and joint pain Skin: Denies rash and pruritus. Neurological: Denies dizziness, headache, vision or hearing problems Patient is seen today at bedside, labs and chart reviewed. Patient reports feeling better today. Patient was on 4 L of NC O2, titrated down to 2 L per minute. Patient on ceftriaxone and doxycycline and on oseltamivir. Tolerating well. Ordered zinc supplement. Blood culture no growth so far. Objective vital signs Vital Sign Date Time Temp Pulse Resp B/P (MAP) Pulse Ox O2 Delivery O2 Flow Rate FiO2 01/06/25 10:00 95 Nasal Cannula 2.0 01/06/25 10:00 28 01/06/25 09:12 97.8 83 18 109/79 (89) 97.8 Total Intake and Output 01/05/25 01/05/25 01/06/25 15:00 23:00 07:00 Intake Total 500 ml 150 ml Balance 500 ml 150 ml medications Current Medications Medications Dose Ordered Sig/Taras Route Start Time Stop Time Status Last Admin Dose Admin Ondansetron HCl 4 mg Q4HP PRN IV 01/05/25 14:30 Enoxaparin Sodium 40 mg DAILY SC 01/06/25 10:00 01/06/25 10:37 40 MG Acetaminophen 650 mg Q6HP PRN PO 01/05/25 14:30 Nitroglycerin 0.4 mg Q5MINP PRN SL 01/05/25 14:30 Morphine Sulfate 2 mg Q30M PRN IV 01/05/25 14:30 Albuterol 2.5 mg Q4HR NEB 01/05/25 18:00 01/06/25 09:15 2.5 MG Ipratropium [place] 0.5 mg Q4HR NEB 01/05/25 18:00 01/06/25 09:15 0.5 MG Diagnostic Test (Pha) 1 strip ACHS 01/05/25 17:00 01/06/25 06:17 1 STRIP Insulin Human Regular ACHS SC 01/05/25 17:00 Dextrose 50 ml UD PRN IV 01/05/25 14:30 Azithromycin 250 ml @ 125 mls/hr DAILY IV 01/06/25 10:00 01/06/25 10:37 125 MLS/HR Oseltamivir Phosphate 75 mg DAILY PO 01/06/25 10:00 01/11/25 09:59 01/06/25 10:36 75 MG Magnesium Sulfate/ Dextrose 100 ml @ 100 mls/hr Q1HR IV 01/06/25 10:00 01/06/25 11:59 01/06/25 10:36 100 MLS/HR Zinc Sulfate 220 mg DAILY PO 01/06/25 10:00 01/11/25 09:59 01/06/25 10:36 220 MG Ceftriaxone Sodium 50 ml @ 100 mls/hr DAILY@1100 IV 01/06/25 11:00 Hold Examination General: Patient alert and oriented in person, place and time. Patient is minimally fatigued and weak. Patient following commands. HEENT: Normocephalic, atraumatic, moist mucous membranes Respiratory/pulmonary: Coarse breathing sound, wheezing+ Cardiovascular: Normal heart sounds S1 and S2 with no associated murmurs Abdomen: Abdomen nondistended, there is no pain to palpation in any of the abdominal quadrants, no palpable masses. Extremities: There is no peripheral edema present at the lower extremities. Peripheral Pulses: 3+ Radial (R). 3+ Radial (L). 3+ Dorsalis pedis (R). 3+ Dorsalis pedis(L) Skin: No rashes or pruritus, there is no sacral edema present at this time. Neurological: Intact cranial nerves with no focal neurologic deficits laboratory and microbiology Laboratory Tests 01/06/25 04:34 Test 01/06/25 04:34 Range/Units Serum Glucose 97 74-106 mg/dL Microbiology Date/Time Source Procedure Growth Status 01/05/25 09:22 Blood Blood Culture - Preliminary NO GROWTH AFTER 24 HOURS OF INCUBATION. Resulted Problem List/Assessment/Plan Problem List/Assessment/Plan Assessment/Plan # Acute hypoxic respiratory failure likely due to pneumonia # Influenza A and B positive # possible Gram-positive/negative bacterial pneumonia -initial chest x-ray was grossly clear with no evidence of clear consolidations -blood culture no growth so far - on oseltamivir 75 mg PO daily -on IV Rocephin and azithromycin IV -respiratory therapy with albuterol and ipratropium p.r.n. -symptomatic management with acetaminophen # Sepsis likely from above. - continue ceftriaxone and azithromycin as prescribed -blood culture no growth so far -ordered sputum culture # Primary hypertension -losartan 100 mg daily tomorrow a.m. once blood pressure on normal range. -monitor blood pressure closely # Hypothyroidism -order TSH and free T4 -resume home levothyroxine 25 mcg q.a.m. # Dyslipidemia -order lipid panel -start atorvastatin 40 mg daily # Type 2 diabetes mellitus - hemoglobin A1c 6.3 -start sliding scale insulin -monitor blood glucose # open-angle glaucoma - patient was diagnosed with glaucoma six weeks ago and currently using latanoprost eyedrops - follow up with outpatient business risk consultant # Morbid obesity -BMI 47.7 - patient is on Ozempic 2 mg/weekly -consult on diet, lifestyle modifications and exercise as tolerated. Goal of care discussed with patient for 32 minutes: Full code Plan discussed with Dr. Gao Plan discussed with: Patient Plan discussed with: Patient, Other My Orders My Orders Orders - KELVIN RAHMAN RESIDENT Procedure Category Date Status Time Thyroid Stimulating LAB 01/06/25 In Process Hormone 06:42 Vitamin B12 LAB 01/06/25 In Process 06:42 Folate (Folic Acid) LAB 01/06/25 In Process 06:42 Drug Screen LAB 01/06/25 Logged 06:44 Respiratory Culture HELLEN 01/06/25 Logged W/ Gs 08:33 Magnesium Sulfate PHA 01/06/25 In Process 1gm/100ml 10:00 KELVIN RAHMAN RESIDENT Jan 06, 2025 11:48 MICHAEL RONDON RESIDENT Jan 07, 2025 09:35
[2025-01-06 12:40] LABS: Amphetamine Screen, Urine Neg (NEGATIVE); Barbiturate Scree,Urine Neg (NEGATIVE); Benzodiazephine Screen, Urine Neg (NEGATIVE); Cannabinoid Screen, Urine Neg (NEGATIVE); Cocaine Screen, Urine Neg (NEGATIVE); Opiate Scree,Urine Neg (NEGATIVE); Phencyclidine Screen, Urine Neg (NEGATIVE)
[2025-01-06] MEDS: ACETAMINOPHEN 325 MG TAB PO PRN (16:13)
[2025-01-07] VITALS (14 sets, daily range): BP systolic 100–156; BP diastolic 61–91; PULSE 68–98; RESP 14–22; TEMP 98–98.6; O2SAT 20–100
[2025-01-07 05:28] LABS: Anion Gap 12 (5-15); Carbon Dioxide 30 mmol/L (20-31); Chloride 101 mmol/L (98-107); Potassium 3.7 mmol/L (3.5-5.1); Sodium 143 mmol/L (136-145)
[2025-01-07 05:29] LABS: Calcium 8.9 mg/dL (8.7-10.4)
[2025-01-07 05:34] LABS: BUN/Creatinine Ratio 15.5 (10.0-20.0); Glucose 99 mg/dL (74-106); Hematocrit 41.7 % (36.0-46.0); Hemoglobin 14.1 g/dL (12.2-16.2); Mean Corpuscular Hemoglobin 31.0 pg (28.0-32.0); Mean Corpuscular Volume 91.3 fL (80.0-100.0); Nucleated Red Blood Cells % 0.4 %
[2025-01-07 05:35] LABS: Magnesium 1.8 mg/dL (1.6-2.6)
[2025-01-07 05:37] LABS: Blood Urea Nitrogen 9 mg/dL (9-23)
[2025-01-07] MEDS: PANTOPRAZOLE 40 MG/10 ML VIAL INJ IV SCH (09:37)
--- NOTE | 2025-01-07 16:21 | DVHPNRES ---
Progress Note Date Seen: Jan 07, 2025 Resident Creating Document: KELVIN RAHMAN RESIDENT Medical Necessity Reason Pt with a Central, PICC or Fol: No Subjective Review of Systems 59-year-old female with past medical history of hypertension, type 2 diabetes, hypothyroidism, hyperlipidemia who presented to the ED with chief complaint of shortness of breaths. The patient stated that she started feeling fever/chills, shortness of breath that started progressively getting worse in the past 3-4 of days associated with cough. The patient mentions having a 2-year-old grandson who was sick last Friday, suggesting a possible source of exposure. PCP: Dr. Sapp Past Medical History -hypertension, type 2 diabetes, hypothyroidism, hyperlipidemia PH/SH- Smoke: Quit (Six year ago, she has smoking one pack per day for more than 45 years), denies substance use or alcoholism, lives in home Constitutional: Reports fever, minimally weakness and fatigue. Denies weight loss HEENT: Denies changes in vision and hearing. Respiratory: Reports shortness of breath and cough. Cardiovascular: Denies chest discomfort or palpitations GI: Denies abdominal pain, nausea, vomiting and diarrhea. : Denies dysuria and urinary frequency. Musculoskeletal: Denies myalgias and joint pain Skin: Denies rash and pruritus. Neurological: Denies dizziness, headache, vision or hearing problems Patient is seen today at bedside, labs and chart reviewed. Patient reports feeling better today. Patient on NC O2 2 L/min. Patient was taken off oxygen but patient became hypoxic patient is put back on NC O2 1 L/min. Patient on ceftriaxone and azithromycin and Tamiflu. Tolerating well. Blood culture no growth so far. Objective vital signs Vital Sign Date Time Temp Pulse Resp B/P (MAP) Pulse Ox O2 Delivery O2 Flow Rate FiO2 01/07/25 13:00 90 18 143/81 (101) 97 01/07/25 11:22 Nasal Cannula* 1 24 01/07/25 09:00 98.6 98.6 Total Intake and Output 01/06/25 01/06/25 01/07/25 15:00 23:00 07:00 Intake Total 850 ml 400 ml Balance 850 ml 400 ml medications Current Medications Medications Dose Ordered Sig/Taras Route Start Time Stop Time Status Last Admin Dose Admin Ondansetron HCl 4 mg Q4HP PRN IV 01/05/25 14:30 Enoxaparin Sodium 40 mg DAILY SC 01/06/25 10:00 01/07/25 09:38 40 MG Acetaminophen 650 mg Q6HP PRN PO 01/05/25 14:30 01/07/25 11:58 650 MG Nitroglycerin 0.4 mg Q5MINP PRN SL 01/05/25 14:30 Morphine Sulfate 2 mg Q30M PRN IV 01/05/25 14:30 Diagnostic Test (Pha) 1 strip ACHS 01/05/25 17:00 01/07/25 11:56 1 STRIP Insulin Human Regular ACHS SC 01/05/25 17:00 Dextrose 50 ml UD PRN IV 01/05/25 14:30 Azithromycin 250 ml @ 125 mls/hr DAILY IV 01/06/25 10:00 01/07/25 09:37 125 MLS/HR Oseltamivir Phosphate 75 mg DAILY PO 01/06/25 10:00 01/11/25 09:59 01/07/25 09:38 75 MG Zinc Sulfate 220 mg DAILY PO 01/06/25 10:00 01/11/25 09:59 01/07/25 09:38 220 MG Ceftriaxone Sodium 50 ml @ 100 mls/hr DAILY@1100 IV 01/06/25 11:00 Hold Albuterol 2.5 mg Q6HR NEB 01/06/25 12:00 01/07/25 11:23 2.5 MG Ipratropium [place] 0.5 mg Q6HR NEB 01/06/25 12:00 01/07/25 11:23 0.5 MG Pantoprazole Sodium 40 mg DAILY IV 01/07/25 10:00 01/07/25 09:37 40 MG Examination General: Patient alert and oriented in person, place and time. Patient is minimally fatigued and weak. Patient following commands. HEENT: Normocephalic, atraumatic, moist mucous membranes Respiratory/pulmonary: Coarse breathing sound, wheezing+ Cardiovascular: Normal heart sounds S1 and S2 with no associated murmurs Abdomen: Abdomen nondistended, there is no pain to palpation in any of the abdominal quadrants, no palpable masses. Extremities: There is no peripheral edema present at the lower extremities. Peripheral Pulses: 3+ Radial (R). 3+ Radial (L). 3+ Dorsalis pedis (R). 3+ Dorsalis pedis(L) Skin: No rashes or pruritus, there is no sacral edema present at this time. Neurological: Intact cranial nerves with no focal neurologic deficits laboratory and microbiology Laboratory Tests 01/07/25 04:43 Test 01/07/25 04:43 Range/Units Serum Glucose 99 74-106 mg/dL Microbiology Date/Time Source Procedure Growth Status 01/05/25 09:22 Blood Blood Culture - Preliminary NO GROWTH AFTER 48 HOURS OF INCUBATION. Resulted Problem List/Assessment/Plan Problem List/Assessment/Plan Assessment/Plan # Acute hypoxic respiratory failure likely due to pneumonia # Influenza A and B positive # possible Gram-positive/negative bacterial pneumonia -initial chest x-ray was grossly clear with no evidence of clear consolidations -blood culture no growth so far - on oseltamivir 75 mg PO daily -on IV Rocephin and azithromycin IV -respiratory therapy with albuterol and ipratropium p.r.n. -symptomatic management with acetaminophen # Sepsis likely from above. - continue ceftriaxone and azithromycin as prescribed -blood culture no growth so far -ordered sputum culture # Primary hypertension -losartan 100 mg daily tomorrow a.m. once blood pressure on normal range. -monitor blood pressure closely # Hypothyroidism -order TSH and free T4 -resume home levothyroxine 25 mcg q.a.m. # Dyslipidemia -order lipid panel -start atorvastatin 40 mg daily # Type 2 diabetes mellitus - hemoglobin A1c 6.3 -start sliding scale insulin -monitor blood glucose # open-angle glaucoma - patient was diagnosed with glaucoma six weeks ago and currently using latanoprost eyedrops - follow up with outpatient merchandise worker # Morbid obesity -BMI 47.7 - patient is on Ozempic 2 mg/weekly -consult on diet, lifestyle modifications and exercise as tolerated. Goal of care discussed with patient for 32 minutes: Full code Plan discussed with Dr. Gao Plan discussed with: Patient Plan discussed with: Patient, Other (RN) My Orders My Orders Orders - KELVIN RAHMAN Procedure Category Date Status Time Pantoprazole PHA 01/07/25 Logged (Protonix) 10:00 KELVIN RAHMAN Jan 07, 2025 16:21
[2025-01-08] VITALS (15 sets, daily range): BP systolic 117–133; BP diastolic 69–87; PULSE 69–97; RESP 15–20; TEMP 97.7–100.1; O2SAT 81–98
[2025-01-08 06:15] LABS: Hematocrit 39.4 % (36.0-46.0); Hemoglobin 13.3 g/dL (12.2-16.2); Mean Corpuscular Hemoglobin 30.9 pg (28.0-32.0); Mean Corpuscular Volume 91.2 fL (80.0-100.0); Nucleated Red Blood Cells % 0.2 %
[2025-01-08 06:27] LABS: Anion Gap 11 (5-15); Carbon Dioxide 31 mmol/L (20-31); Chloride 101 mmol/L (98-107); Potassium 3.7 mmol/L (3.5-5.1); Sodium 143 mmol/L (136-145)
[2025-01-08 06:28] LABS: Calcium 8.8 mg/dL (8.7-10.4)
[2025-01-08 06:33] LABS: BUN/Creatinine Ratio 23.6 (10.0-20.0); Blood Urea Nitrogen 13 mg/dL (9-23); Glucose 100 mg/dL (74-106); Magnesium 1.8 mg/dL (1.6-2.6)
[2025-01-08] MEDS: MAGNESIUM SULFATE 1GM/100ML 100 ML IV ONE (08:35)
--- NOTE | 2025-01-08 10:01 | DVHPNRES ---
Progress Note Date Seen: Jan 08, 2025 Resident Creating Document: KELVIN RAHMAN RESIDENT Medical Necessity Reason Pt with a Central, PICC or Fol: No Subjective Review of Systems 59-year-old female with past medical history of hypertension, type 2 diabetes, hypothyroidism, hyperlipidemia who presented to the ED with chief complaint of shortness of breaths. The patient stated that she started feeling fever/chills, shortness of breath that started progressively getting worse in the past 3-4 of days associated with cough. The patient mentions having a 2-year-old grandson who was sick last Friday, suggesting a possible source of exposure. PCP: Dr. Sapp Past Medical History -hypertension, type 2 diabetes, hypothyroidism, hyperlipidemia PH/SH- Smoke: Quit (Six year ago, she has smoking one pack per day for more than 45 years), denies substance use or alcoholism, lives in home Constitutional: Reports fever, minimally weakness and fatigue. Denies weight loss HEENT: Denies changes in vision and hearing. Respiratory: Reports shortness of breath and cough. Cardiovascular: Denies chest discomfort or palpitations GI: Denies abdominal pain, nausea, vomiting and diarrhea. : Denies dysuria and urinary frequency. Musculoskeletal: Denies myalgias and joint pain Skin: Denies rash and pruritus. Neurological: Denies dizziness, headache, vision or hearing problems Patient is seen today at bedside, labs and chart reviewed. Patient reports feeling better today. Lung sounds more clear than yesterday. Patient on [place] O2 1 L/min. Plan is to take patient off oxygen before discharge. Ordered methylprednisolone 40 mg IV once, Objective vital signs Vital Sign Date Time Temp Pulse Resp B/P (MAP) Pulse Ox O2 Delivery O2 Flow Rate FiO2 01/08/25 09:00 100.1 83 16 133/84 (100) 92 100.1 01/08/25 06:04 Nasal Cannula* 2 28 Total Intake and Output 01/07/25 01/07/25 01/08/25 15:00 23:00 07:00 Intake Total 1000 ml 800 ml Output Total 1100 ml Balance -100 ml 800 ml medications Current Medications Medications Dose Ordered Sig/Taras Route Start Time Stop Time Status Last Admin Dose Admin Ondansetron HCl 4 mg Q4HP PRN IV 01/05/25 14:30 Enoxaparin Sodium 40 mg DAILY SC 01/06/25 10:00 01/08/25 08:36 40 MG Acetaminophen 650 mg Q6HP PRN PO 01/05/25 14:30 01/08/25 06:30 650 MG Nitroglycerin 0.4 mg Q5MINP PRN SL 01/05/25 14:30 Morphine Sulfate 2 mg Q30M PRN IV 01/05/25 14:30 Diagnostic Test (Pha) 1 strip ACHS 01/05/25 17:00 01/08/25 06:30 1 STRIP Insulin Human Regular ACHS SC 01/05/25 17:00 Dextrose 50 ml UD PRN IV 01/05/25 14:30 Azithromycin 250 ml @ 125 mls/hr DAILY IV 01/06/25 10:00 01/08/25 08:36 125 MLS/HR Oseltamivir Phosphate 75 mg DAILY PO 01/06/25 10:00 01/11/25 09:59 01/08/25 08:36 75 MG Zinc Sulfate 220 mg DAILY PO 01/06/25 10:00 01/11/25 09:59 01/08/25 08:36 220 MG Ceftriaxone Sodium 50 ml @ 100 mls/hr DAILY@1100 IV 01/06/25 11:00 Hold Albuterol 2.5 mg Q6HR NEB 01/06/25 12:00 01/08/25 06:16 2.5 MG Ipratropium [place] 0.5 mg Q6HR NEB 01/06/25 12:00 01/08/25 06:17 0.5 MG Pantoprazole Sodium 40 mg DAILY IV 01/07/25 10:00 01/08/25 08:36 40 MG Examination General: Patient alert and oriented in person, place and time. Patient is minimally fatigued and weak. Patient following commands. HEENT: Normocephalic, atraumatic, moist mucous membranes Respiratory/pulmonary: Coarse breathing sound, wheezing+ Cardiovascular: Normal heart sounds S1 and S2 with no associated murmurs Abdomen: Abdomen nondistended, there is no pain to palpation in any of the abdominal quadrants, no palpable masses. Extremities: There is no peripheral edema present at the lower extremities. Peripheral Pulses: 3+ Radial (R). 3+ Radial (L). 3+ Dorsalis pedis (R). 3+ Dorsalis pedis(L) Skin: No rashes or pruritus, there is no sacral edema present at this time. Neurological: Intact cranial nerves with no focal neurologic deficits laboratory and microbiology Laboratory Tests 01/08/25 05:38 Test 01/08/25 05:38 Range/Units Serum Glucose 100 74-106 mg/dL Microbiology Date/Time Source Procedure Growth Status 01/05/25 09:22 Blood Blood Culture - Preliminary NO GROWTH AFTER 72 HOURS OF INCUBATION. Resulted Problem List/Assessment/Plan Problem List/Assessment/Plan Assessment/Plan # Acute hypoxic respiratory failure likely due to pneumonia # Influenza A and B positive # possible Gram-positive/negative bacterial pneumonia -initial chest x-ray was grossly clear with no evidence of clear consolidations -blood culture no growth so far - on oseltamivir 75 mg PO daily -on IV Rocephin and azithromycin IV -respiratory therapy with albuterol and ipratropium p.r.n. -symptomatic management with acetaminophen # Sepsis likely from above. - continue ceftriaxone and azithromycin as prescribed -blood culture no growth so far - pending sputum culture # Primary hypertension -losartan 100 mg daily tomorrow a.m. once blood pressure on normal range. -monitor blood pressure closely # Hypothyroidism -order TSH and free T4 -resume home levothyroxine 25 mcg q.a.m. # Dyslipidemia -order lipid panel -start atorvastatin 40 mg daily # Type 2 diabetes mellitus - hemoglobin A1c 6.3 -start sliding scale insulin -monitor blood glucose # open-angle glaucoma - patient was diagnosed with glaucoma six weeks ago and currently using latanoprost eyedrops - follow up with outpatient joist setter # Morbid obesity -BMI 47.7 - patient is on Ozempic 2 mg/weekly -consult on diet, lifestyle modifications and exercise as tolerated. Goal of care discussed with patient for 32 minutes: Full code Plan discussed with Dr. Gao Plan discussed with: Patient Plan discussed with: Patient, Other (RN) KELVIN RAHMAN RESIDENT Jan 08, 2025 10:01
[2025-01-08] MEDS: methylPREDNISolone SOD SUCC 40 MG/ML VL IV ONE (12:03)
[2025-01-08] MEDS: ALBUTEROL SULF 2.5 MG/0.5ML(0.5%) NEB SOLN NEB ONE (14:00)
[2025-01-09] VITALS (14 sets, daily range): BP systolic 104–132; BP diastolic 70–88; PULSE 79–96; RESP 16–20; TEMP 96.7–98.3; O2SAT 84–100
[2025-01-09] MEDS: MELATONIN 5 MG TAB PO ONE (01:04)
[2025-01-09 07:28] LABS: Hematocrit 36.7 % (36.0-46.0); Hemoglobin 12.5 g/dL (12.2-16.2); Mean Corpuscular Hemoglobin 30.9 pg (28.0-32.0); Mean Corpuscular Volume 90.6 fL (80.0-100.0); Nucleated Red Blood Cells % 0.0 %
[2025-01-09 07:46] LABS: Anion Gap 9 (5-15); Carbon Dioxide 30 mmol/L (20-31); Chloride 102 mmol/L (98-107); Potassium 4.5 mmol/L (3.5-5.1); Sodium 141 mmol/L (136-145)
[2025-01-09 07:49] LABS: Calcium 8.6 mg/dL (8.7-10.4)
[2025-01-09 07:53] LABS: BUN/Creatinine Ratio 17.5 (10.0-20.0); Blood Urea Nitrogen 11 mg/dL (9-23)
[2025-01-09 08:00] LABS: Glucose 115 mg/dL (74-106)
[2025-01-09] MEDS: MAGNESIUM SULFATE 1GM/100ML 100 ML IV ONE (12:51)
[2025-01-09] MEDS: methylPREDNISolone SOD SUCC 40 MG/ML VL IV ONE (12:52)
[2025-01-09] MEDS: FUROSEMIDE 20 MG/2 ML VIAL IV ONE (12:56)
[2025-01-09] MEDS ORDERED: ACETYLCYSTEINE 10 %(100MG/ML) SOL 4ML NEB SCH (14:00)
--- NOTE | 2025-01-09 14:07 | DVHPNRES ---
Progress Note Date Seen: Jan 09, 2025 Resident Creating Document: MILAGROS WILKES RESIDENT Medical Necessity Reason Pt with a Central, PICC or Fol: No Subjective Review of Systems Jey Mcintosh is a 59-year-old female with past medical history of hypertension, type 2 diabetes, hypothyroidism, hyperlipidemia who presented to the ED with the chief complaint of shortness of breath. The patient stated that she started feeling fever/chills, shortness of breath that started progressively getting worse in the past 3-4 of days associated with cough. The patient mentions having a 2-year-old grandson who was sick last Friday, suggesting a possible source of exposure. PCP: Dr. Wilder Past Medical History -hypertension, type 2 diabetes, hypothyroidism, hyperlipidemia PH/SH- Smoke: Quit (Six year ago, she was smoking one pack per day for more than 45 years), denies substance use or alcoholism, lives in home Constitutional: Reports fever, minimally weakness and fatigue. Denies weight loss HEENT: Denies changes in vision and hearing. Respiratory: Reports shortness of breath and cough. Cardiovascular: Denies chest discomfort or palpitations GI: Denies abdominal pain, nausea, vomiting and diarrhea. : Denies dysuria and urinary frequency. Musculoskeletal: Denies myalgias and joint pain Skin: Denies rash and pruritus. Neurological: Denies dizziness, headache, vision or hearing problems Patient was seen at bedside today. All vitals are stable and labs within range. Patient reports feeling better today. Patient on oxygen by nasal canula at 2L/min. Mucomyst was ordered for the patient along with one time dose of 20mg iv methylprednisone and 20 mg lasix iv. She was also given 1gm magnesium and ordered for magnesium level again. The plan is to try to wean her off the oxygen and do a BiPAP trial tonight at 10/5. Patient has to continue with incentive spirometry. Objective vital signs Vital Sign Date Time Temp Pulse Resp B/P (MAP) Pulse Ox O2 Delivery O2 Flow Rate FiO2 01/09/25 12:56 104/70 01/09/25 12:17 81 16 100 01/09/25 10:00 Nasal Cannula 2.0 01/09/25 10:00 28 01/09/25 09:00 97.6 97.6 Total Intake and Output 01/08/25 01/08/25 01/09/25 15:00 23:00 07:00 Intake Total 1000 ml 800 ml Output Total 500 ml Balance 500 ml 800 ml medications Current Medications Medications Dose Ordered Sig/Taras Route Start Time Stop Time Status Last Admin Dose Admin Ondansetron HCl 4 mg Q4HP PRN IV 01/05/25 14:30 Enoxaparin Sodium 40 mg DAILY SC 01/06/25 10:00 01/09/25 09:27 40 MG Acetaminophen 650 mg Q6HP PRN PO 01/05/25 14:30 01/08/25 06:30 650 MG Nitroglycerin 0.4 mg Q5MINP PRN SL 01/05/25 14:30 Morphine Sulfate 2 mg Q30M PRN IV 01/05/25 14:30 Diagnostic Test (Pha) 1 strip ACHS 01/05/25 17:00 01/09/25 11:30 1 STRIP Insulin Human Regular ACHS SC 01/05/25 17:00 01/08/25 21:47 3 UNITS Dextrose 50 ml UD PRN IV 01/05/25 14:30 Azithromycin 250 ml @ 125 mls/hr DAILY IV 01/06/25 10:00 01/09/25 09:27 125 MLS/HR Oseltamivir Phosphate 75 mg DAILY PO 01/06/25 10:00 01/11/25 09:59 01/09/25 09:27 75 MG Zinc Sulfate 220 mg DAILY PO 01/06/25 10:00 01/11/25 09:59 01/09/25 09:27 220 MG Ceftriaxone Sodium 50 ml @ 100 mls/hr DAILY@1100 IV 01/06/25 11:00 Hold Albuterol 2.5 mg Q6HR NEB 01/06/25 12:00 01/09/25 12:08 2.5 MG Ipratropium [place] 0.5 mg Q6HR NEB 01/06/25 12:00 01/09/25 12:07 0.5 MG Pantoprazole Sodium 40 mg DAILY IV 01/07/25 10:00 01/09/25 09:27 40 MG Acetylcysteine 100 mg Q4HR NEB 01/09/25 14:00 Examination General: Patient alert and oriented in person, place and time. Patient is minimally fatigued and weak. Patient following commands. HEENT: Normocephalic, atraumatic, moist mucous membranes Respiratory/pulmonary: Coarse breathing sound, wheezing+ Cardiovascular: Normal heart sounds S1 and S2 with no associated murmurs Abdomen: Abdomen nondistended, there is no pain to palpation in any of the abdominal quadrants, no palpable masses. Extremities: There is no peripheral edema present at the lower extremities. Peripheral Pulses: 3+ Radial (R). 3+ Radial (L). 3+ Dorsalis pedis (R). 3+ Dorsalis pedis(L) Skin: No rashes or pruritus, there is no sacral edema present at this time. Neurological: Intact cranial nerves with no focal neurologic deficits laboratory and microbiology Laboratory Tests 01/09/25 06:40 Test 01/09/25 06:40 Range/Units Serum Glucose 115 H 74-106 mg/dL Microbiology Date/Time Source Procedure Growth Status 01/06/25 03:40 Sputum Gram Stain Pending Resulted 01/06/25 03:40 Sputum Respiratory Culture - Preliminary Resulted 01/05/25 09:22 Blood Blood Culture - Preliminary NO GROWTH AFTER 72 HOURS OF INCUBATION. Resulted Labs and/or images reviewed: Labs reviewed by me, Image(s) reviewed by me Problem List/Assessment/Plan Problem List/Assessment/Plan Acute hypoxic respiratory failure, likely due to pneumonia Influenza A and B positive Possible Gram-positive/negative bacterial pneumonia -initial chest x-ray was grossly clear with no evidence of clear consolidations -blood culture no growth so far - on oseltamivir 75 mg PO daily -on IV Rocephin and azithromycin IV -respiratory therapy with albuterol and ipratropium p.r.n. -symptomatic management with acetaminophen -20 mg iv methylprednisone one time dose given Sepsis, likely from above - continue ceftriaxone and azithromycin as prescribed -blood culture no growth so far - pending sputum culture Primary hypertension -losartan 100 mg daily tomorrow a.m. once blood pressure on normal range. -monitor blood pressure closely Hypothyroidism -order TSH and free T4 -resume home levothyroxine 25 mcg q.a.m. Dyslipidemia -ordered lipid panel -start atorvastatin 40 mg daily Type 2 diabetes mellitus - hemoglobin A1c 6.3 -mild sliding scale insulin -monitor blood glucose Open-angle glaucoma - patient was diagnosed with glaucoma six weeks ago and currently using latanoprost eyedrops - follow up with outpatient carrier blower Morbid obesity -BMI 47.7 - patient is on Ozempic 2 mg/weekly -consult on diet, lifestyle modifications and exercise as tolerated. PUD prophylaxis: protonix DVT prophylaxis: lovenox Goals of care: Full code, discussed for >23 minutes Plan discussed with patient Plan discussed with Dr Gao Plan discussed with: Patient My Orders My Orders Orders - MILAGROS WILKES Procedure Category Date Status Time Acetylcysteine PHA 01/09/25 In Process Inhalation 10% 14:00 BIPAP RT 01/09/25 Logged 12:03 Dietary Evaluation Review Comments: 1) Add cardiac restriction to 45g CCHO diet 2) Encourage optimal PO intake 3) Refer to outpatient RD/[facility] for weight management 4) Follow-up with cardiology and pulmonology 5) Continue to monitor I&O, labs, and skin integrity Expected Outcomes/Goals: 1) appetite and labs to improve 2) gradual wt loss 3) f/u in 3-5 days MILAGROS WILKES RESIDENT Jan 09, 2025 14:07
[2025-01-09] MEDS: ACETYLCYSTEINE 10 %(100MG/ML) SOL 4ML NEB SCH (18:00)
[2025-01-10] VITALS (13 sets, daily range): BP systolic 104–141; BP diastolic 68–82; PULSE 71–89; RESP 14–20; TEMP 36.7; O2SAT 93–99
[2025-01-10] MEDS: MELATONIN 5 MG TAB PO STA (00:33)
[2025-01-10 08:36] LABS: Hematocrit 38.6 % (36.0-46.0); Hemoglobin 12.9 g/dL (12.2-16.2); Mean Corpuscular Hemoglobin 30.3 pg (28.0-32.0); Mean Corpuscular Volume 90.7 fL (80.0-100.0); Nucleated Red Blood Cells % 0.0 %
[2025-01-10 08:43] LABS: Chloride 101 mmol/L (98-107); Potassium 4.1 mmol/L (3.5-5.1); Sodium 143 mmol/L (136-145)
[2025-01-10 08:44] LABS: Anion Gap 10 (5-15); Calcium 9.0 mg/dL (8.7-10.4)
[2025-01-10 08:49] LABS: BUN/Creatinine Ratio 19.4 (10.0-20.0); Blood Urea Nitrogen 12 mg/dL (9-23); Triglycerides 87 mg/dL (< 150)
[2025-01-10 08:51] LABS: Cholesterol 164 mg/dL (< 200); HDL Cholesterol 53 mg/dL (40-59)
[2025-01-10 08:54] LABS: Carbon Dioxide 32 mmol/L (20-31); Glucose 114 mg/dL (74-106)
--- NOTE | 2025-01-10 12:00 | DVHINCON2 ---
Date Seen: Jan 10, [address] Nicolas Reason for Consultation Influenza type a, atelectasis, pulmonary nodule History of Present Illness 59-year-old woman history of hypertension, type 2 diabetes mellitus, hypothyroidism, hyperlipidemia who presented with shortness of breath. She was found to have influenza type a and B. She was current oseltamivir course. She was receiving bronchodilators and mucolytics. She recently had a CT chest that demonstrated pulmonary nodules and right middle lobe and lingular atelectasis. Pulmonary consultation is called due to acute hypoxic respiratory failure and infection with type a and type B influenza. Review of systems: 14 point review of systems is negative unless otherwise noted above. Past medical history: Hypertension, type 2 diabetes mellitus, hypothyroidism, hyperlipidemia, morbid obesity Past surgical history: , bilateral tubal ligation, hysterectomy Medications: Reviewed Allergies: Penicillins and tetracycline Family history: No family history of premature CAD. No family history of lung disease. Social history: Ex-smoker. Quit six years ago. Smoked one pack per day for more than 45 years. No alcohol or illicit drug use. Lives with family. Family History: FH: cancer uncle FH: skin cancer grandfather uncle grandmother Allergies: Coded Allergies: Penicillins (Verified Allergy, Unknown, 09/03/22) Tetracycline (Verified Allergy, Unknown, 09/03/22) Home Meds Active Scripts Azithromycin (Azithromycin) 500 Mg Tab, 1 TAB PO DAILY for 1 Day, #1 TAB Prov:CRISTINE MOE RESIDENT 05/24/24 Azithromycin (Azithromycin) 250 Mg Tab, 250 MG PO DAILY MDD 500 for 4 Days, #4 TAB 0 Refills 2 TABLETS ORALLY ON DAY ONE, THEN 1 TABLET ORALLY DAILY FOR 4 DAYS Prov:GOLDIE MO RESIDENT 05/24/24 Oseltamivir Phosphate (Tamiflu) 75 Mg Cap, 1 CAP PO BID for 3 Days, #6 CAP Prov:GOLDIE MO RESIDENT 05/24/24 Zinc Sulfate (Zinc) 220 Mg Cap, 220 MG PO Q24H, #30 CAP Prov:JENNIFER CERVANTES MD 09/09/22 Cholecalciferol (Vitamin D3 Super Strength) 2,000 Unit Cap, 2000 UNIT PO Q24H, #30 CAP Prov:JENNIFER CERVANTES MD 09/09/22 Ascorbic Acid (VITAMIN C TABLET) 500 Mg Tb, 1 TAB PO BID, #60 TAB Prov:JENNIFER CERVANTES MD 09/09/22 Dexamethasone (Dexamethasone) 6 Mg Tab, 6 MG PO Q24H, #5 TAB Prov:JENNIFER CERVANTES MD 09/09/22 Azithromycin (Zithromax Z-Mark) 250 Mg Tab, 250 MG PO Q24H, #6 TAB Prov:JENNIFER CERVANTES MD 09/09/22 Blood Glucose Monitoring Suppl (D-Care Glucometer Kit/Glu W/Device) 1 Kit Kit, KIT XX, #1 Prov:JENNIFER CERVANTES MD 09/09/22 Metformin Hydrochloride (Metformin Hcl) 500 Mg Tab, 1 TAB PO BID, #60 TAB 3 Refills Prov:JENNIFER CERVANTES MD 09/09/22 Reported Medications Melatonin (KP MELATONIN) 3 Mg Tab, 1 TAB PO QPM, #30 TAB 2 Refills 05/24/24 Semaglutide (Ozempic) 4 Mg/3 Ml Inj, 5 MG SC QWEEKLY, INJ 05/24/24 Glipizide (Glipizide) 10 Mg Tab, 10 MG PO DAILY for 30 Days, MG 05/24/24 Simvastatin (Simvastatin) 40 Mg Tab, 40 MG PO DAILY for 30 Days 09/04/22 Omeprazole (Gnp Omeprazole) 20 Mg Tab, 20 MG PO, TAB 09/04/22 Losartan Potassium (Losartan Potassium) 100 Mg Tab, 100 MG PO, TAB 09/04/22 [Prilosec] No Conflict Check 01/11/11 [Ativan] No Conflict Check 01/11/11 Ferrous Sulfate (Iron) 28 Mg Tab, PO DAILY 01/10/11 Valsartan-Hydrochlorothiazide (Diovan Hct) 160 Mg/25 Mg Tab, PO DAILY 01/10/11 Current Medications Current Medications Medications (Trade) Dose Ordered Sig/Taras Route PRN Reason Start Time Stop Time Status Last Admin Acetylcysteine (Mucomyst Inahalation 10%) 100 mg Q4HR NEB 01/09/25 14:00 01/09/25 14:12 DC Acetylcysteine (Mucomyst Inahalation 10%) 100 mg Q6HR NEB 01/09/25 18:00 01/10/25 00:07 Melatonin (Melatonin) 5 mg ONCE STAT PO 01/10/25 00:17 01/10/25 00:26 DC 01/10/25 00:33 Vital Signs Vital Signs Date Time Temp Pulse Resp B/P (MAP) Pulse Ox O2 Delivery O2 Flow Rate FiO2 01/10/25 09:00 98.1 75 16 120/80 (93) 94 98.1 01/10/25 06:40 Nasal Cannula* 2 28 Physical Exam Gen.: Patient lying in bed in no apparent distress. On supplemental oxygen. He is breathing comfortably on room air. Head: Normocephalic, atraumatic Eyes: EOMI/PERRLA. Ears: Normal hearing. Normal anatomy. Neck/trachea: Trachea midline, supple. Nose: Normal external anatomy. Mouth: Moist mucous membranes. Chest: Fair air entry bilaterally. No wheezing or rhonchi. Cardio vascular: Positive S1, positive S2. Regular rate and rhythm. Abdomen: Positive bowel sounds in all 4 quadrants. Soft, non-tender, non- distended. : Deferred. Rectal: Deferred Skin: Warm, dry. Extremities: 2+ radial pulses bilaterally. No lower extremity edema. Neuro: Awake, alert, oriented x3. No gross motor or sensory deficits. Cranial nerves II through XII intact. Gait not assessed. Labs/Diagnostic Data Labs Test 01/10/25 11:09 01/10/25 06:13 01/09/25 06:40 01/06/25 08:39 Range/Units POC Glucose 93 70-106 mg/dl White Blood Count 7.1 4.4-10.8 10^3/uL Red Blood Count 4.26 4.0-5.20 10^6/uL Hemoglobin 12.9 12.2-16.2 g/dL Hematocrit 38.6 36.0-46.0 % Mean Corpuscular Volume 90.7 80.0-100.0 fL Mean Corpuscular Hemoglobin 30.3 28.0-32.0 pg Mean Corpuscular Hemoglobin Concent 33.5 32.0-36.0 g/dL Red Cell Distribution Width 13.3 11.8-14.3 % Platelet Count 217 140-450 10^3/uL Mean Platelet Volume 8.2 6.9-10.8 fL Neutrophils (%) (Auto) 64.3 37.0-80.0 % Lymphocytes (%) (Auto) 26.6 10.0-50.0 % Monocytes (%) (Auto) 8.7 0.0-12.0 % Eosinophils (%) (Auto) 0.1 0.0-7.0 % Basophils (%) (Auto) 0.3 0.0-2.0 % Neutrophils # (Auto) 4.5 1.6-8.6 10 ^3/uL Lymphocytes # (Auto) 1.9 0.4-5.4 10 ^3/uL Monocytes # (Auto) 0.6 0-1.3 10 ^3/uL Eosinophils # (Auto) 0 0-0.8 10 ^3/uL Basophils # (Auto) 0 0-0.2 10 ^3/uL Nucleated Red Blood Cells 0.0 % Sodium Level 143 136-145 mmol/L Potassium Level 4.1 3.5-5.1 mmol/L Chloride Level 101 98-107 mmol/L Carbon Dioxide Level 32 H 20-31 mmol/L Anion Gap 10 5-15 Blood Urea Nitrogen 12 9-23 mg/dL Creatinine 0.62 0.550-1.02 mg/dL Glomerular Filtration Rate Calc 101 >90 mL/min BUN/Creatinine Ratio 19.4 10.0-20.0 Serum Glucose 114 H 74-106 mg/dL Calcium Level 9.0 8.7-10.4 mg/dL Triglycerides Level 87 < 150 mg/dL Cholesterol Level 164 < 200 mg/dL LDL Cholesterol 99 < 100 mg/dL HDL Cholesterol 53 40-59 mg/dL Magnesium Level 1.8 1.6-2.6 mg/dL Hemoglobin A1c 6.3 H <5.7 % A1C Vitamin B12 Level 766 211-911 pg/mL Vitamin D 25-Hydroxy 62.8 30.0-100 ng/mL Folic Acid 29.07 >5.38 ng/mL Thyroid Stimulating Hormone (TSH) 0.88 0.55-4.78 uIU/mL Test 01/06/25 04:34 01/05/25 13:12 01/05/25 13:11 01/05/25 10:24 Range/Units Total Bilirubin 0.2 0.2-1.0 mg/dL Aspartate Amino Transferase (AST) 25 13-40 U/L Alanine Aminotransferase (ALT) 18 7-40 U/L Alkaline Phosphatase 89 46-116 U/L Total Protein 6.7 5.7-8.2 g/dL Albumin 3.9 3.2-4.8 g/dL Troponin I High Sensitivity < 3 L </=34 ng/L Influenza Type A Antigen Positive Negative Influenza Type B Antigen Positive Negative SARS-CoV-2 Antigen (Rapid) Negative NEGATIVE Urine Color Light-orange Yellow Urine Clarity Ex.turbid Clear Urine pH 5.5 5.0-9.0 Urine Specific [place] 1.027 1.001-1.035 Urine Protein Trace H Negative Urine Ketones Negative Negative Urine Blood Negative Negative /uL Urine Nitrite Negative Negative Urine Bilirubin Negative Negative Urine Urobilinogen Normal Negative mg/dL Urine Leukocyte Esterase Negative Negative /uL Urine RBC 2 0 - 4 /hpf Urine Microscopic WBC < 1 0-5 /HPF Urine Squamous Epithelial Cells Few <5 /hpf Urine Amorphous Crystals Mod None Seen /hpf Urine Bacteria Few H None Seen /hpf Urine Glucose Normal Normal mg/dL Urine Opiates Screen Neg NEGATIVE Urine Fentanyl Screen Neg NEGATIVE Urine Barbiturates Screen Neg NEGATIVE Urine Phencyclidine Screen Neg NEGATIVE Urine Amphetamines Screen Neg NEGATIVE Urine Benzodiazepines Screen Neg NEGATIVE Urine Cocaine Screen Neg NEGATIVE Urine Cannabinoids Screen Neg NEGATIVE Test 01/05/25 09:10 Range/Units Lactic Acid Level 1.6 0.4-2.0 mmol/L B-Type Natriuretic Peptide 31.33 0-100 pg/mL Microbiology Date/Time Source Procedure Growth Status 01/06/25 03:40 Sputum Gram Stain - Final Resulted 01/06/25 03:40 Sputum Respiratory Culture - Preliminary Resulted 01/05/25 09:22 Blood Blood Culture - Final NO GROWTH AFTER 5 DAYS OF INCUBATION. Complete Assessment Impression: Acute hypoxic respiratory failure 2/2 influenza MARY 5 mm pulmonary nodule Ground glass opacities Influenza type A and B Morbid obesity, BMI 48.4 Pneumonia possible Sepsis 2/2 influenza Atelectasis Plan: 5 mm post segment in MARY, stable since 2022. 2mm MARY pulmonary nodules. GGO in RLL unchanged when compared to prior RML and lingular atelectasis. CT chest can be repeat as outpatient. She will require yearly CT chest for lung nodule surveillance. Complete antibiotic course. Incentive spirometry for atelectasis Bronchodilators/mucomyst Complete Oseltamivir course. DVT prophylaxis-Lovenox s.c. GI prophylaxis - Protonix Patient is stable from the pulmonary standpoint for discharge. Patient can follow up in [facility] [address] for ongoing monitoring of her pulmonary nodules. Prognosis: Guarded given multiple comorbidities. Rest of plan per hospitalist and other consultants. Thank you Dr. Gruber for allowing me to participate in this patient's care. Please do not hesitate to contact me if you have any questions or concerns. This medical document was created using an electronic medical record system with [employer] dictation system. Although this document has been carefully reviewed, there may still be some phonetic and typographical errors. These areas are purely typographical due to imperfections of the software programs, and do not reflect any compromise in the patient's medical care. Plan discussed with: Patient, Other (Dr Gruber) Date of Service: Jan 10, 2025 Billing Provider: JOVANY BECKMAN MD Common Visit Codes: 04370-[id number] INP/OBS CARE (HIGH) JOVANY BECKMAN MD Jan 10, 2025 12:00
[2025-01-10] MEDS ORDERED: OSEL75CA5 PO (12:38)
[2025-01-10] MEDS: MELATONIN 5 MG TAB ONE (12:44)
--- NOTE | 2025-01-10 12:44 | DVHDSRES ---
Discharge Summary Date of Admission Resident Creating Document: KELVIN RAHMAN RESIDENT Jan 05, 2025 at 14:24 Date of Discharge: Jan 10, 2025 Admitting Diagnosis Acute hypoxic respiratory failure with acute respiratory distress Wounds: # Acute hypoxic respiratory failure likely due to pneumonia Gram-positive versus Gram-negative # Influenza A and B positive with pneumonia # possible Gram-positive vs negative bacterial pneumonia # Sepsis likely from above. # Primary hypertension # Hypothyroidism # Dyslipidemia # Type 2 diabetes mellitus # open-angle glaucoma # Morbid obesity Labs/Diagnostic Data: Laboratory Results Test 01/10/25 11:09 01/10/25 06:13 01/09/25 06:40 01/06/25 08:39 POC Glucose 93 mg/dl (70-106) White Blood Count 7.1 10^3/uL (4.4-10.8) Red Blood Count 4.26 10^6/uL (4.0-5.20) Hemoglobin 12.9 g/dL (12.2-16.2) Hematocrit 38.6 % (36.0-46.0) Mean Corpuscular Volume 90.7 fL (80.0-100.0) Mean Corpuscular Hemoglobin 30.3 pg (28.0-32.0) Mean Corpuscular Hemoglobin Concent 33.5 g/dL (32.0-36.0) Red Cell Distribution Width 13.3 % (11.8-14.3) Platelet Count 217 10^3/uL (140-450) Mean Platelet Volume 8.2 fL (6.9-10.8) Neutrophils (%) (Auto) 64.3 % (37.0-80.0) Lymphocytes (%) (Auto) 26.6 % (10.0-50.0) Monocytes (%) (Auto) 8.7 % (0.0-12.0) Eosinophils (%) (Auto) 0.1 % (0.0-7.0) Basophils (%) (Auto) 0.3 % (0.0-2.0) Neutrophils # (Auto) 4.5 10 ^3/uL (1.6-8.6) Lymphocytes # (Auto) 1.9 10 ^3/uL (0.4-5.4) Monocytes # (Auto) 0.6 10 ^3/uL (0-1.3) Eosinophils # (Auto) 0 10 ^3/uL (0-0.8) Basophils # (Auto) 0 10 ^3/uL (0-0.2) Nucleated Red Blood Cells 0.0 % Sodium Level 143 mmol/L (136-145) Potassium Level 4.1 mmol/L (3.5-5.1) Chloride Level 101 mmol/L (98-107) Carbon Dioxide Level 32 mmol/L (20-31) Anion Gap 10 (5-15) Blood Urea Nitrogen 12 mg/dL (9-23) Creatinine 0.62 mg/dL (0.550-1.02) Glomerular Filtration Rate Calc 101 mL/min (>90) BUN/Creatinine Ratio 19.4 (10.0-20.0) Serum Glucose 114 mg/dL (74-106) Calcium Level 9.0 mg/dL (8.7-10.4) Triglycerides Level 87 mg/dL (< 150) Cholesterol Level 164 mg/dL (< 200) LDL Cholesterol 99 mg/dL (< 100) HDL Cholesterol 53 mg/dL (40-59) Magnesium Level 1.8 mg/dL (1.6-2.6) Hemoglobin A1c 6.3 % A1C (<5.7) Vitamin B12 Level 766 pg/mL (211-911) Vitamin D 25-Hydroxy 62.8 ng/mL (30.0-100) Folic Acid 29.07 ng/mL (>5.38) Thyroid Stimulating Hormone (TSH) 0.88 uIU/mL (0.55-4.78) Test 01/06/25 04:34 01/05/25 13:12 01/05/25 13:11 01/05/25 10:24 Total Bilirubin 0.2 mg/dL (0.2-1.0) Aspartate Amino Transferase (AST) 25 U/L (13-40) Alanine Aminotransferase (ALT) 18 U/L (7-40) Alkaline Phosphatase 89 U/L (46-116) Total Protein 6.7 g/dL (5.7-8.2) Albumin 3.9 g/dL (3.2-4.8) Troponin I High Sensitivity < 3 ng/L (</=34) Influenza Type A Antigen Positive (Negative) Influenza Type B Antigen Positive (Negative) SARS-CoV-2 Antigen (Rapid) Negative (NEGATIVE) Urine Color Light-orange (Yellow) Urine Clarity Ex.turbid (Clear) Urine pH 5.5 (5.0-9.0) Urine Specific [place] 1.027 (1.001-1.035) Urine Protein Trace (Negative) Urine Ketones Negative (Negative) Urine Blood Negative /uL (Negative) Urine Nitrite Negative (Negative) Urine Bilirubin Negative (Negative) Urine Urobilinogen Normal mg/dL (Negative) Urine Leukocyte Esterase Negative /uL (Negative) Urine RBC 2 /hpf (0 - 4) Urine Microscopic WBC < 1 /HPF (0-5) Urine Squamous Epithelial Cells Few /hpf (<5) Urine Amorphous Crystals Mod /hpf (None Seen) Urine Bacteria Few /hpf (None Seen) Urine Glucose Normal mg/dL (Normal) Urine Opiates Screen Neg (NEGATIVE) Urine Fentanyl Screen Neg (NEGATIVE) Urine Barbiturates Screen Neg (NEGATIVE) Urine Phencyclidine Screen Neg (NEGATIVE) Urine Amphetamines Screen Neg (NEGATIVE) Urine Benzodiazepines Screen Neg (NEGATIVE) Urine Cocaine Screen Neg (NEGATIVE) Urine Cannabinoids Screen Neg (NEGATIVE) Test 01/05/25 09:10 Lactic Acid Level 1.6 mmol/L (0.4-2.0) B-Type Natriuretic Peptide 31.33 pg/mL (0-100) Other Laboratory Tests 01/10/25 06:13 Brief Hx & Hospital Course: 59-year-old female with past medical history of hypertension, type 2 diabetes, hypothyroidism, hyperlipidemia who presented to the ED with chief complaint of shortness of breaths. The patient stated that she started feeling fever/chills, shortness of breath that started progressively getting worse in the past 3-4 of days associated with cough. The patient mentions having a 2-year-old grandson who was sick last Friday, suggesting a possible source of exposure. Patient tested positive for influenza type a and B. Patient was treated with the Tamiflu and also with ceftriaxone and azithromycin for suspected secondary bacterial pneumonia Gram-positive versus Gram-negative. Patient was on 4 L of oxygen initially and gradually titrate down and to cut off oxygen. Blood culture negative for any growth. Patient has a incentive spirometry. Patient's symptoms improved. Patient was seen by Dr. Black mail handlers supervisor, cleared for discharge. Patient was advised to follow up with the mail handlers supervisor as outpatient for pulmonary nodule as per schedule. Patient is being discharged with the oseltamivir 75 mg p.o. b.i.d. for 3 days. Patient's meds were sent to the pharmacy electronically. Patient was hemodynamically stable on discharge and breathing in room air. Operations or Procedures [address] [address] Ph: [phone] DIAGNOSTIC IMAGING Diagnostic Imaging Report : [id number] Signed PATIENT: JEFF FRIEND ACCT: [id number] UNIT: [id number] : 1965 LOC: ER ROOM / BED: / AGE / SEX: 59 / F ADM STATUS: REG ER SERVICE 7 ORDERING PHYSICIAN: CHILANGO CHASE MD PROCEDURE(s): CXRP - CHEST PORTABLE REASON: sob ORDER NUMBER(s): [id number], ACCESSION NUMBER(s): [id number] CHEST RADIOGRAPH Indication: sob Technique: Single frontal view of the chest was obtained COMPARISON: XY CHEST PORTABLE on DOS: 05/22/24, CT CT ANGIO CHEST CONTRAST on DOS: 09/03/22, XY CHEST PORTABLE on DOS: 09/03/22 FINDINGS: Lines and Tubes: None Lungs: Clear Pleura: No effusion. No pneumothorax. Cardiomediastinal contours: Unremarkable Bones: Unremarkable IMPRESSION: No acute disease. ATED BY: DEO MARY MD DICTATED DATE/TIME: 01/05/25949 SIGNED BY: DEO MARY MD SIGNED DATE/TIME: 01/05/25949 CC: Condition at Discharge: Stable Final Diagnosis/Problems List # Acute hypoxic respiratory failure likely due to pneumonia Gram-positive versus Gram-negative # Influenza A and B positive with pneumonia # possible Gram-positive vs negative bacterial pneumonia # Sepsis likely from above. # Primary hypertension # Hypothyroidism # Dyslipidemia # Type 2 diabetes mellitus # open-angle glaucoma # Morbid obesity # left upper lobe 5 mm pulmonary nodule #Ground glass opacities Discharge Disposition: Home Discharge Instruct/Medications Diet: Consistent carbohydrate, Cardiac 2g Na,low cholest Activity: No Restrictions, As Tolerated Follow Up/Referral: Please follow up with the primary care physician in 1-2 weeks Please follow up at the discharge clinic in 1 week Follow up with the mail handlers supervisor as per schedule Medications: Oseltamivir 75 mg p.o. b.i.d. for 3 days Resume home medications Scheduled Ascorbic Acid (Vitamin C Tablet), 1 TAB PO BID Azithromycin (Zithromax Z-Mark), 250 MG PO Q24H Azithromycin (Azithromycin), 250 MG PO DAILY Azithromycin (Azithromycin), 1 TAB PO DAILY Cholecalciferol (Vitamin D3 Super Strength), 2,000 UNIT PO Q24H Dexamethasone (Dexamethasone), 6 MG PO Q24H Ferrous Sulfate (Iron), PO DAILY, (Reported) Glipizide (Glipizide), 10 MG PO DAILY, (Reported) Melatonin (Kp Melatonin), 1 TAB PO QPM, (Reported) Metformin Hydrochloride (Metformin Hcl), 1 TAB PO BID Oseltamivir Phosphate (Tamiflu), 1 CAP PO BID Oseltamivir Phosphate (Tamiflu), 75 MG PO BID Semaglutide (Ozempic), 5 MG SC QWEEKLY, (Reported) Simvastatin (Simvastatin), 40 MG PO DAILY, (Reported) Valsartan-Hydrochlorothiazide (Diovan Hct), PO DAILY, (Reported) Zinc Sulfate (Zinc), 220 MG PO Q24H Miscellaneous Medications Losartan Potassium (Losartan Potassium), 100 MG PO, (Reported) Omeprazole (Gnp Omeprazole), 20 MG PO, (Reported) [Ativan], (Reported) [Prilosec], (Reported) Durable Medical Equipment Blood Glucose Monitoring Suppl (D-Care Glucometer Kit/Glu W/Device), KIT XX, (DME) Discharge Statement: "Patient was advised to return to the ER or call 911 if any headaches, dizziness, shortness of breath, chest pain, abdominal pain, bleeding, fevers, or worsening of medical condition. Patient was counseled about treatment plan, medications, possible side effects, patientverbalized understanding. All questions were answered to the best of my ability. This discharge took greater then 30 minutes in planning, reviewing documentation, counseling the patient, and discussing with other team members." ASSESSMENT ASSESSMENT Assessment Acute hypoxic respiratory failure, likely due to pneumonia Influenza A and B positive Possible Gram-positive/negative bacterial pneumonia Sepsis, likely from above Primary hypertension Hypothyroidism Dyslipidemia Type 2 diabetes mellitus Open-angle glaucoma Morbid obesity KELVIN RAHMAN RESIDENT Jan 10, 2025 12:44
[2025-01-10] MEDS ORDERED: OSELTAMIVIR 75 MG CAP PO SCH (22:00)
== END 2025-01-10 16:44 | disposition home or self-care (01) | DRG 720 ==
LOC: ER 08:28 → OVERFLOW 14:24 → CENTRAL 01-06 01:02
PROVIDERS: ADMIT Internal Medicine Geriatric Medicine; ATTEND Internal Medicine Geriatric Medicine
DX: A41.89 Other specified sepsis (principal); J96.01 Acute respiratory failure with hypoxia; J15.69 Pneumonia due to other Gram-negative bacteria; J10.08 Influenza due to other identified influenza virus with other specified pneumonia; I10 Essential (primary) hypertension; Z20.822 Contact with and (suspected) exposure to COVID-19; E03.9 Hypothyroidism, unspecified; J15.9 Unspecified bacterial pneumonia; E78.5 Hyperlipidemia, unspecified; E66.01 Morbid (severe) obesity due to excess calories; E11.9 Type 2 diabetes mellitus without complications; Z68.42 Body mass index [BMI] 45.0-49.9, adult; H40.10X0 Unspecified open-angle glaucoma, stage unspecified; J98.4 Other disorders of lung; R91.1 Solitary pulmonary nodule; J98.11 Atelectasis; Z90.710 Acquired absence of both cervix and uterus; Z98.51 Tubal ligation status; Z83.3 Family history of diabetes mellitus; Z80.8 Family history of malignant neoplasm of other organs or systems; Z87.891 Personal history of nicotine dependence; Z88.0 Allergy status to penicillin; Z88.1 Allergy status to other antibiotic agents
CPT/HCPCS: 36415; 71045; 80048; 80053; 80061; 80307; 81001; 82306; 82607; 82746; 82962; 83036; 83605; 83735; 83880; 84443; 84484; 85025; 87040; 87070; 87205; 87426; 87804; 93005; 94640; 99291; 99292; G0378; J1815; J2470

== ENCOUNTER 2025-03-07 15:53 | Emergency (ER) | payer MEDICAID ==
[~2025-03-07] VITALS: Ht 160 cm; Wt 117.5 kg
[2025-03-07 15:56] VITALS: BP 134/90; PULSE 111; RESP 18; TEMP 98.2; O2SAT 94
--- NOTE | 2025-03-07 17:06 | ED.PDOC ---
Back pain HPI HPI Comments 58-year-old female presents to the ER with a full body pain. Patient reports on having bilateral hand pain associated with the nose pain which is tender to touch and radiates to the frontalis for the past three weeks. Denies any other symptoms at this time. Chief Complaint: Body Pain Time Seen by MD: 17:00 Primary Care Provider: AMADAIES Reviewed Notes: Nurses Notes, Medications, Allergies Allergies: Coded Allergies: Penicillins (Verified Allergy, Unknown, 09/03/22) Tetracycline (Verified Allergy, Unknown, 09/03/22) Home Meds Active Scripts Diclofenac Sodium (Topical) (Voltaren Arthritis Pain) 1 % Gel, 2 GRAMS EX QID for 30 Days, #60 GRAMS 0 Refills Prov:RAI YAN NP 03/07/25 Acetaminophen (Arthritis Pain Reliever) 650 Mg Tab, 650 MG PO Q6HP PRN for 10 Days, #40 TAB 0 Refills Prov:RAI YAN NP 03/07/25 Prednisone (Prednisone) 20 Mg Tab, 40 MG PO DAILY for 5 Days, #10 TAB 0 Refills Prov:RAI YAN NP 03/07/25 Oseltamivir Phosphate (Tamiflu) 75 Mg Cap, 75 MG PO BID for 3 Days, #6 CAP Prov:KELVIN RAHMAN RESIDENT 01/10/25 Azithromycin (Azithromycin) 500 Mg Tab, 1 TAB PO DAILY for 1 Day, #1 TAB Prov:GOLDIE MO RESIDENT 05/24/24 Azithromycin (Azithromycin) 250 Mg Tab, 250 MG PO DAILY MDD 500 for 4 Days, #4 TAB 0 Refills 2 TABLETS ORALLY ON DAY ONE, THEN 1 TABLET ORALLY DAILY FOR 4 DAYS Prov:GOLDIE MO RESIDENT 05/24/24 Oseltamivir Phosphate (Tamiflu) 75 Mg Cap, 1 CAP PO BID for 3 Days, #6 CAP Prov:GOLDIE MO RESIDENT 05/24/24 Zinc Sulfate (Zinc) 220 Mg Cap, 220 MG PO Q24H, #30 CAP Prov:JENNIFER CERVANTES MD 09/09/22 Cholecalciferol (Vitamin D3 Super Strength) 2,000 Unit Cap, 2000 UNIT PO Q24H, #30 CAP Prov:JENNIFER CERVANTES MD 09/09/22 Ascorbic Acid (VITAMIN C TABLET) 500 Mg Tb, 1 TAB PO BID, #60 TAB Prov:JENNIFER CERVANTES MD 09/09/22 Dexamethasone (Dexamethasone) 6 Mg Tab, 6 MG PO Q24H, #5 TAB Prov:JENNIFER CERVANTES MD 09/09/22 Azithromycin (Zithromax Z-Mark) 250 Mg Tab, 250 MG PO Q24H, #6 TAB Prov:JENNIFER CERVANTES MD 09/09/22 Blood Glucose Monitoring Suppl (D-Care Glucometer Kit/Glu W/Device) 1 Kit Kit, KIT XX, #1 Prov:JENNIFER CERVANTES MD 09/09/22 Metformin Hydrochloride (Metformin Hcl) 500 Mg Tab, 1 TAB PO BID, #60 TAB 3 Refills Prov:JENNIFER CERVANTES MD 09/09/22 Reported Medications Melatonin (KP MELATONIN) 3 Mg Tab, 1 TAB PO QPM, #30 TAB 2 Refills 05/24/24 Semaglutide (Ozempic) 4 Mg/3 Ml Inj, 5 MG SC QWEEKLY, INJ 05/24/24 Glipizide (Glipizide) 10 Mg Tab, 10 MG PO DAILY for 30 Days, MG 05/24/24 Simvastatin (Simvastatin) 40 Mg Tab, 40 MG PO DAILY for 30 Days 09/04/22 Omeprazole (Gnp Omeprazole) 20 Mg Tab, 20 MG PO, TAB 09/04/22 Losartan Potassium (Losartan Potassium) 100 Mg Tab, 100 MG PO, TAB 09/04/22 [Prilosec] No Conflict Check 01/11/11 [Ativan] No Conflict Check 01/11/11 Ferrous Sulfate (Iron) 28 Mg Tab, PO DAILY 01/10/11 Valsartan-Hydrochlorothiazide (Diovan Hct) 160 Mg/25 Mg Tab, PO DAILY 01/10/11 Information Source: Patient Mode of Arrival: Ambulatory Timing: Weeks Duration: Since onset Severity: Moderate Prehospital treatment: None Quality: Aching Onset: Spontaneous History of: None Associated signs and symptoms: None Past Medical History PAST MEDICAL HISTORY: High Lipids, HTN Surgical History: BTL, , Hysterectomy SMELTER LINER History: Denies all SMELTER LINER Hx Family History Family History: Reviewed,noncontributory to illness, Unknown Social History Smoker: Non-Smoker, Quit Greater Than 1 Year Alcohol: Denies ETOH Use Drugs: Denies Drug Use Lives In: Home Constitutional: denies: chills, diaphoresis, fatigue, fever, malaise, sweats, weakness, others EENTM: denies: blurred vision, double vision, ear bleeding, ear discharge, ear drainage, ear pain, ear ringing, eye pain, eye redness, hearing loss, mouth pain, mouth swelling, nasal discharge, nose bleeding, nose congestion, nose pain, photophobia, tearing, throat pain, throat swelling, voice changes, others Respiratory: denies: cough, hemoptysis, orthopnea, SOB at rest, shortness of breath, SOB with excertion, stridor, wheezing, others Cardiovascular: denies: chest pain, dizzy spells, diaphoresis, Dyspnea on exertion, edema, irregular heart beat, left arm pain, lightheadedness, palpitations, PND, syncope, others Gastrointestinal: denies: abdomen distended, abdominal pain, blood streaked bowels, constipated, diarrhea, dysphagia, difficulty swallowing, hematemesis, melena, nausea, poor appetite, poor fluid intake, rectal bleeding, rectal pain, vomiting, others Genitourinary: denies: abnormal vagina bleeding, burning, dyspareunia, dysuria, flank pain, frequency, hematuria, incontinence, pain, , vagina discharge, urgency, others Neurological: denies: dizziness, fainting, headache, left sided numbness, left sided weakness, numbness, paresthesia, pre-existing deficit, right sided numbness, right sided weakness, seizure, speech problems, tingling, tremors, weakness, others Musculoskeletal: reports: others (Bilateral hand pain, nose pain, frontalis pain); denies: back pain, gout, joint pain, joint swelling, muscle pain, muscle stiffness, neck pain Integumetry: denies: bruises, change in color, change in hair/nails, dryness, laceration, lesions, lumps, rash, wounds, others Allergic/Immunocompromised: denies: Difficulty Healing, Frequent Infections, Hives, Itching, others Hematologic/Lymphatic: denies: anemia, blood clots, easy bleeding, easy bruising, swollen glands, others Endocrine: denies: excessive hunger, excessive sweating, excessive thirst, excessive urination, flushing, intolerance to cold, intolerance to heat, unexpl ained weight gain, unexplained weight loss, others Psychiatric: denies: anxiety, bipolar disorder, depression, hopeless, panic disorder, schizophrenia, sleepless, suicidal, others All Other Systems: Reviewed and Negative Physical Exam Exam Comments Bilateral hands and nose and frontalis are normocephalic atraumatic General Appearance: No Apparent Distress, Normal HEENT: Normal ENT Inspection, Pharynx Normal, TMs Normal Neck: Full Range of Motion, Non-Tender, Normal, Normal Inspection Respiratory: Chest Non-Tender, Lungs Clear, No Accessory Muscle Use, No Respiratory Distress, Normal Breath Sounds Cardiovascular: No Edema, No JVD, No Murmur, No Gallop, Normal Peripheral Pulses, Regular Rate/Rhythm Breast Exam: Deferred Gastrointestinal: No Organomegaly, Non Tender, No Pulsatile Mass, Normal Bowel Sounds, Soft Genitalia: Deferred Pelvic: Deferred Rectal: Deferred Extremities: No calf tenderness, Normal capillary refill, Normal inspection, Normal range of motion, Non-tender, No pedal edema Musculoskeletal : Apperance: Normal Neurologic: Alert, game designer II-XII nml as Tested, No Motor Deficits, Normal Affect, Normal Mood, No Sensory Deficits Cerebellar Function: Normal Reflexes: Normal Skin: Dry, Normal Color, Warm Lymphatic: No Adenopathy Was a procedure done? Was a procedure done?: No Back Pain Differential Dx Differential Diagnosis: Musculoskeletal Pain X-Ray, Labs, Meds, VS Vital Signs Date Time Temp Pulse Resp B/P (MAP) Pulse Ox O2 Delivery O2 Flow Rate FiO2 03/07/25 15:56 98.2 111 18 134/90 94 98.2 Current Medications Medications (Trade) Dose Ordered Sig/Taras Route Start Time Stop Time Status Last Admin Acetaminophen/ Hydrocodone Bitart (Strawberry 5/325MG Tab) 1 tab ONCE ONCE PO 03/07/25 18:15 03/07/25 18:16 DC 03/07/25 18:40 Ondansetron HCl (Zofran Po) 4 mg ONCE ONCE PO 03/07/25 18:15 03/07/25 18:16 DC 03/07/25 18:40 X-Ray, Labs, Meds, VS Comment 58-year-old female presents to the ER with a full body pain. Patient arrives alert and oriented, ABC's intact, afebrile, vital signs stable, saturating well in room air Diagnostic imaging ordered by me and results interpreted by radiology : Left wrist and right wrist x-ray, CT head History and examination consistent w/ sprain X-rays ordered, read by radiologist and reviewed by me. Imaging shows no acute findings There are no signs of arterial or nerve damage Take IBU or OTC Tylenol w/ food as needed for pain Recommended heat therapy Reviewed RICE management Avoid heavy lifting or strenuous activity Recommended range of motion exercises and limit heavy activity for 1 week Additional MDM Review of External, Non-ED records: External records reviewed. Discussion with independent historian (EMS, family) history obtained from the patient/parents (if applicable) at bedside Chronic conditions affecting care: None Social determinants of health affecting care: None Consideration of admission (observation or admission): I considered escalation of care to admission for this patient, however given the reassuring workup, the patient is safe for outpatient management. Discussion with the Radiology: No Tests considered but not performed: Prescription medication considered but not given: 12 lead EKG interpretation: Time of 1ST Reevaluation: 17:30 Reevaluation 1ST: Improved Patient Education/Counseling: Diagnosis, Treatment, Prognosis Family Education/Counseling: No Family Present SEPSIS Sepsis Screen Date sepsis recognized/suspect: Mar 07, 2025 Time Sepsis recognized/suspect: 6 Recent Procedure: No On Antibiotic Therapy: No Respiratory Rate >20: No Heart Rate >90: Yes Temp<36 C (96.8 F) or >38.3 C: No SBP <90 or MAP <65 mmHG: No New Acute Mental Status Change: No Is the patient on CPAP, BIPAP,: No Physician Orders Head Without Contrast (03/07/25 16:47) L Wrist 3+ View Xray (03/07/25 16:47) R Wrist 3+ View Xray (03/07/25 16:47) Splints (03/07/25 ) Vital Signs Date Time Temp Pulse Resp B/P (MAP) Pulse Ox O2 Delivery O2 Flow Rate FiO2 03/07/25 15:56 98.2 111 18 134/90 94 98.2 Departure 1 Departure Time of Disposition: 17:51 Impression: Primary Impression: Wrist arthritis Qualified Codes: M19.031 - Primary osteoarthritis, right wrist; M19.032 - Primary osteoarthritis, left wrist Additional Impression: Headache Qualified Codes: R51.9 - Headache, unspecified Disposition: HOME / SELF CARE / HOMELESS Condition: Stable e-Prescriptions Diclofenac Sodium (Topical) (Voltaren Arthritis Pain) 1 % Gel 2 GRAMS EX QID for 30 Days, #60 GRAMS 0 Refills Prov: RAI YAN NP 03/07/25 Acetaminophen (Arthritis Pain Reliever) 650 Mg Tab 650 MG PO Q6HP PRN for 10 Days, #40 TAB 0 Refills Prov: RAI YAN NP 03/07/25 Prednisone (Prednisone) 20 Mg Tab 40 MG PO DAILY for 5 Days, #10 TAB 0 Refills Prov: RAI YAN NP 03/07/25 Critical Care Note Critical Care Time?: No Stability Stability form required: No Heart Score Heart Score: Heart Score Response (Comments) Value History N/A 0 EKG N/A 0 Age N/A 0 Risk Factors N/A 0 Troponin N/A 0 Total 0 I personally scribed for RAI YAN NP ([email or web address]) on 03/07/25 at 17:06. Electronically submitted by Patrick Oliver ([email or web address]). RAI YAN NP Mar 07, 2025 17:06
--- NOTE | 2025-03-07 17:27 | DVH ---
Indication: Pains Technique: XY R WRIST 3+ VIEW XRAYXY Comparison: None FINDINGS/IMPRESSION: No radiographic evidence for acute fracture or dislocation. No significant soft tissue edema. No radiopaque foreign body. [id number] degenerate changes right wrist.
--- NOTE | 2025-03-07 17:27 | DVH ---
Indication: Pains Technique: XY L WRIST 3+ VIEW XRAYXY Comparison: None FINDINGS/IMPRESSION: No radiographic evidence for acute fracture or dislocation. No significant soft tissue edema. No radiopaque foreign body. There are [id number] degenerate changes of the left wrist.
--- NOTE | 2025-03-07 17:43 | DVH ---
Procedure: CT HEAD WITHOUT CONTRAST Study Date and Requested Time: 03/07/2025 04:53 PM History: CANALES Comparison: None Dose: CTDI: 53.99 mGy DLP: 863.9 mGycm Technique: Multiplanar images obtained through the brain without intravenous contrast. Findings: Normal brain volume and formation. No hemorrhages, masses, mass effect, midline shift, herniation or cytotoxic edema following a large vascular territory. No intra-axial or extra-axial fluid collections. No evidence of hydrocephalus. The basal cisterns are patent. The pituitary gland, sella and parasellar regions are unremarkable. The cerebellar tonsils are in normal position. The cerebellum is unremarkable. The orbits and globes are unremarkable. The paranasal sinuses and mastoids are clear. There are no worrisome calvarial lesions. Impression: No evidence of acute intracranial abnormality. If symptoms persist, consider MRI for further evaluation.
[2025-03-07] MEDS ORDERED: PRED20TA2 PO (17:56)
[2025-03-07] MEDS ORDERED: ACET650T26 PO (17:56)
[2025-03-07] MEDS ORDERED: DICL1GEL59 EX (17:56)
[2025-03-07] MEDS: HYDROcodone-ACET 5/325MG TAB PO ONE (18:40)
[2025-03-07] MEDS: ONDANSETRON ODT 4 MG TAB PO ONE (18:40)
== END 2025-03-07 18:45 | disposition home or self-care (01) ==
LOC: ER 15:53
DX: M19.031 Primary osteoarthritis, right wrist (principal); M19.032 Primary osteoarthritis, left wrist; R51.9 Headache, unspecified; I10 Essential (primary) hypertension; Z79.899 Other long term (current) drug therapy; Z88.0 Allergy status to penicillin; Z88.1 Allergy status to other antibiotic agents; Z90.710 Acquired absence of both cervix and uterus
CPT/HCPCS: 29125; 70450; 73110; 99284; Q0162